=== PATIENT | female | born 1945 ===

== ENCOUNTER 2023-10-14 14:30 | Outpatient (REF) | payer MEDICAID, SELFPAY ==
--- NOTE | ~2023-10-14 | XR_ITS ---
EXAMINATION: XR KNEE, RIGHT CLINICAL INFORMATION: Chronic pain of both knees, history of worsening atraumatic bilateral knee pain COMPARISON: None available. TECHNIQUE: Four views of the right knee. FINDINGS: Marked degenerative changes of the knee. There is utgu-cj-hwly contact of the medial femoral tibial joint with varus angulation of the knee. There is subchondral osteosclerosis, marginal bone spurs and flattening of the articular surfaces of both the femur and tibia at the medial femoral tibial joint. Large marginal bone spurs of femur and tibia at the lateral femoral tibial joint. Marked joint narrowing of the patellofemoral joint with large bone spurs of the patella and the femur. No chondrocalcinosis. No joint effusion. XR/XR knee RT 3V IMPRESSION: Marked degenerative joint disease of the knee.
--- NOTE | ~2023-10-14 | XR_ITS ---
EXAMINATION: XR KNEE, LEFT CLINICAL INFORMATION: Chronic pain of both knees, history of worsening atraumatic bilateral knee pain COMPARISON: None available. TECHNIQUE: Four views of the left knee. FINDINGS: There is no fracture. No dislocation. No joint effusion. Marked degenerative change. Dokr-rm-qfkf contact with large marginal bone spurs of the medial femoral tibial joint. Small periarticular bone spur of the tibia at the lateral femoral tibial joint. Marked joint narrowing with large marginal bone spurs of the patella and femur at the patellofemoral joint. No chondrocalcinosis XR/XR knee LT 3V IMPRESSION: 1. No acute abnormality. 2. Marked degenerative joint disease of the knee.
== END 2023-10-14 14:31 | disposition home or self-care (01) ==
LOC: HO.HHCX 14:30
PROVIDERS: Visit Provider Emergency Medicine
DX: M25.561 Pain in right knee (principal); M25.562 Pain in left knee; G89.29 Other chronic pain
CPT/HCPCS: 73562

== ENCOUNTER 2023-11-17 13:06 | Outpatient (AMB) | payer MEDICAID, SELFPAY ==
--- NOTE | 2023-11-17 13:08 | MHC.OFFVIS ---
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 She describes her right knee pain as sharp and severe in nature. At this point her left knee pain tolerable to her. She has taken Tylenol and anti-inflammatory medicines which gave her minimal relief. She has also done physical therapy exercises which aggravated her pain. She wishes to hold off on surgery for as long as possible. Allergies No Known Allergies Allergy (Verified 11/17/23 13:14) Medication List - Last Reconciled 11/18/23 by Asim Allen MD acetaminophen 1,000 mg PO Q6H PRN diclofenac sodium 1% grams topical BID Physical Exam Const Other: Well-nourished well-developed very friendly female awake alert and oriented x3 in no acute distress Extrem Other: Bilateral lower extremity examination shows good capillary refill, no skin lesions noted, normal sensation light touch Bilateral knee examination shows minimal effusions, palpable crepitus with range of motion, pain with range of motion, no instability Results Reviewed Results Reviewed: X-rays of the patient's bilateral knee show severe joint space narrowing, subchondral sclerosis, no acute bony abnormalities Assessment & Plan Assessment & Plan (1) Arthritis of left knee: Code(s): M17.12 - Unilateral primary osteoarthritis, left knee (2) Arthritis of right knee: Code(s): M17.11 - Unilateral primary osteoarthritis, right knee Plan Ms. Bourgeois presents with bilateral knee pains, right greater than left, due to degenerative joint disease. I had a lengthy discussion with the patient and her daughter regarding the treatment options. The patient wishes to hold off on surgery for as long as possible. At this point the patient's left knee pain is tolerable to her. The risks and benefits of a right knee viscosupplementation injection were discussed at length with the patient. The patient wishes to proceed. I will see her back once the injection is available. If she fails continued non operative treatments we will further discuss the risks and benefits of total knee replacement surgery. Feel free to call me at any time should questions regarding her orthopedic management arise. Thank you very much for asking me to see this very friendly patient. I spent 22 minutes in reviewing the patient's records and imaging studies, seeing the patient and documenting in the medical record. Coding Level of Care Code New Pt Level 2 (13647) Diagnoses Arthritis of left knee M17.12 Arthritis of right knee M17.11
== END 2023-11-17 13:36 | disposition home or self-care (01) ==
PROVIDERS: Visit Provider Orthopaedic Surgery
DX: M17.0 Bilateral primary osteoarthritis of knee (principal)
CPT/HCPCS: 99202

== ENCOUNTER → 2023-11-17 13:06 | Outpatient (BNVA) | payer MEDICAID, SELFPAY | PROVIDERS: Visit Provider Orthopaedic Surgery | DX: M17.0 Bilateral primary osteoarthritis of knee (principal) | CPT/HCPCS: 99202 ==

== ENCOUNTER 2023-12-01 08:46 | Outpatient (AMB) | payer MEDICAID, SELFPAY ==
--- NOTE | 2023-12-01 09:04 | MHC.OFFVIS ---
Intake Vital Signs 12/01/23 09:05 Weight 174 lb Intake Visit Reasons: OV-Right knee injection Intake Note: Hafsa is a 77 year old female who presents for a Right knee injection. Patient reports that she is having bilateral knee pain but her Right knee is worse. She describes her right knee pain as sharp in nature. She has not had a cortisone injection in the past. She wishes to hold off on surgery for as long as possible. She has tried Tylenol and diclofenac which gave her mild relief. She denies any locking or giving way. Allergies No Known Allergies Allergy (Verified 12/01/23 09:10) Medication List - Last Reconciled 12/01/23 by Asim Allen MD acetaminophen 1,000 mg PO Q6H PRN diclofenac sodium 1% grams topical BID Physical Exam Const Other: Well-nourished well-developed very friendly female awake alert and oriented x3 in no acute distress Extrem Other: Bilateral lower extremity examination shows good capillary refill, no skin lesions noted, normal sensation light touch Right knee examination shows a minimal effusion, mild crepitus with range of motion, pain with range of motion, range of motion from -3 degrees to 115 degrees, no instability Office Procedures Joint Injection/Drain Joint Injection/Drain Primary Site: right knee Prep: site was prepped using aseptic technique Injected: 40 mg of, DepoMedrol and 1% plain lidocaine Procedure: The patient tolerated the procedure well Coding 41873 - Large joint Procedure code (CPT) selection complete Results Reviewed Results Reviewed: X-rays of the patient's right knee show joint space narrowing, subchondral sclerosis, no acute bony abnormalities Assessment & Plan Assessment & Plan (1) Arthritis of right knee: Code(s): M17.11 - Unilateral primary osteoarthritis, right knee Plan Ms. Bourgeois presents with right knee pain due to degenerative joint disease. I had a lengthy discussion with the patient regarding the treatment options. She wishes to hold off on surgery for as long as possible. I agree with this plan. The risks and benefits of a right knee cortisone injection were discussed at length with the patient. The patient wished to proceed. She tolerated the injection well. She will continue with her home exercise program. She will follow up with me on an as-needed basis should her symptoms not plateau at an unacceptable level over the next few months. If the patient does not get lasting relief from cortisone injection therapy I will see whether not her insurance company will cover a viscosupplementation injection. I spent 22 minutes in reviewing the patient's records and imaging studies, seeing the patient and documenting in the medical record. Orders: Orders AMB Joint Injection/Aspiration Today M17.11 - Unilateral primary osteoarthritis, right knee Coding Level of Care Code Est Pt Level 2 (69535) Diagnoses Arthritis of right knee M17.11 CPT Codes Coding - 35134 Large joint: 73623 - Large joint ([id number])
== END 2023-12-01 09:32 | disposition home or self-care (01) ==
PROVIDERS: Visit Provider Orthopaedic Surgery
DX: M17.11 Unilateral primary osteoarthritis, right knee (principal)
CPT/HCPCS: 20610

== ENCOUNTER → 2023-12-01 08:46 | Outpatient (BNVA) | payer MEDICAID, SELFPAY | PROVIDERS: Visit Provider Orthopaedic Surgery | DX: M17.11 Unilateral primary osteoarthritis, right knee (principal) | CPT/HCPCS: 20610; J1020 ==

== ENCOUNTER 2024-01-20 12:57 | Outpatient (REF) | payer MEDICAID, SELFPAY ==
--- NOTE | ~2024-01-20 | US_ITS ---
EXAMINATION: US VENOUS ULTRASOUND WITH DOPPLER LOWER EXTREMITY, RIGHT CLINICAL INFORMATION: Right leg edema COMPARISON: None available. TECHNIQUE: Ultrasound of the deep veins is performed from the hip to the calf with compression sonography and color and pulse Doppler assessment. Spectral analysis with color-flow imaging is performed. FINDINGS: There is normal venous compression and respiratory variation and augmented flow. The visualized common femoral vein, superficial femoral vein, profunda femoral vein, popliteal vein, and the trifurcation region shows no evidence of deep venous thrombosis. There is no significant popliteal fossa cyst. If the patient's symptoms persist, followup ultrasound in 5 days 7 days might be of value to exclude proximal propagation from a non-visualized calf vein. US/US venous duplex LE RT IMPRESSION: No DVT demonstrated in the right lower extremity.
== END 2024-01-20 12:58 | disposition home or self-care (01) ==
LOC: HO.US 12:57
PROVIDERS: Visit Provider Internal Medicine
DX: M79.89 Other specified soft tissue disorders (principal)
CPT/HCPCS: 93971

== ENCOUNTER 2024-02-16 09:15 | Outpatient (AMB) | payer MEDICAID, SELFPAY ==
--- NOTE | 2024-02-16 09:22 | A.OFFVIS_ITS ---
Vital Signs 02/16/24 09:23 Weight 174 lb Intake Visit Reasons: OV- Left knee pain poss. inj Intake Note: Hafsa is a 78 year old female who presents for a follow of Left knee pain. The patient describes her pain as sharp in nature. She has had cortisone injections in the past which gave her fairly good. She has done physical therapy exercises which aggravated her pain. She has also tried Tylenol and anti-inflammatory med icines which gave her minimal relief. She wishes to hold off on surgery for as long as She states that she would like to have her Left knee injected today. Allergies No Known Allergies Allergy (Verified 02/16/24 09:37) Medication List - Last Reconciled 02/16/24 by Asim Allen MD acetaminophen 1,000 mg PO Q6H PRN diclofenac sodium 1% grams topical BID Physical Exam Const Other: Well-nourished well-developed very friendly female awake alert and oriented x3 in no acute distress Extrem Other: Bilateral lower extremity examination shows good capillary refill, no skin lesions noted, normal sensation light touch Left knee examination shows a minimal effusion, palpable crepitus with range of motion, pain with range of motion, no instability Office Procedures Joint Injection/Drain Joint Injection/Drain Primary Site: left knee Prep: site was prepped using aseptic technique Injected: 40 mg of and 1% plain lidocaine Procedure: The patient tolerated the procedure well Coding 55985 - Large joint Procedure code (CPT) selection complete Results Reviewed Results Reviewed: X-rays of the patient's left knee show joint space narrowing, subchondral sclerosis, no acute bony abnormalities Assessment & Plan Assessment & Plan (1) Arthritis of left knee: Code(s): M17.12 - Unilateral primary osteoarthritis, left knee Category: Medical Plan Ms. Bourgeois presents with left knee pain due to degenerative joint disease. I had a lengthy discussion with the patient regarding the treatment options. She wishes to hold off on surgery for as long as possible. I agree with this plan. The risks and benefits of a left knee cortisone injection were discussed at length with the patient. The patient wished to proceed with the injection. She tolerated the injection well. She will continue with her home exercise program. She will follow up with me on an as-needed basis should her symptoms not plateau at an unacceptable level over the next few months. Feel free to call me at any time should questions regarding her orthopedic management arise. I spent 22 minutes in reviewing the patient's records and imaging studies, seeing the patient and documenting in the medical record. Orders: Orders AMB Joint Injection/Aspiration Today M17.12 - Unilateral primary osteoarthritis, left knee Coding Level of Care Code Est Pt Level 2 (11909) Diagnoses Arthritis of left knee M17.12 CPT Codes Coding - 18219 Large joint: 03869 - Large joint ([id number])
== END 2024-02-16 09:50 | disposition home or self-care (01) ==
PROVIDERS: PCP Internal Medicine; Visit Provider Orthopaedic Surgery
DX: M17.12 Unilateral primary osteoarthritis, left knee (principal)
CPT/HCPCS: 20610; 99213

== ENCOUNTER → 2024-02-16 09:15 | Outpatient (BNVA) | payer MEDICAID, SELFPAY | PROVIDERS: PCP Internal Medicine; Visit Provider Orthopaedic Surgery | DX: M17.12 Unilateral primary osteoarthritis, left knee (principal) | CPT/HCPCS: 20610; 99212; J1010 ==

== ENCOUNTER 2024-02-24 14:00 | Outpatient (RCR) | payer MEDICAID, SELFPAY | END 2024-03-18 08:19 | disposition home or self-care (01) | LOC: HO.PT 14:00 | PROVIDERS: PCP Internal Medicine; Visit Provider Internal Medicine | DX: M25.561 Pain in right knee (principal); M25.562 Pain in left knee; M79.89 Other specified soft tissue disorders | CPT/HCPCS: 97110; 97162 ==

== ENCOUNTER 2024-03-02 08:13 | Outpatient (AMB) | payer MEDICAID, SELFPAY ==
--- NOTE | 2024-03-02 08:15 | MHC.OFFVIS ---
Vital Signs 03/02/24 08:15 Weight 174 lb Intake Visit Reasons: OV-Right knee injection-last injection 12/01/23 Intake Note: Hafsa is a 78 year old female who presents for a follow up of Right knee pain. Patient reports she had an injection in her Right knee on 12/01/2023 and it gave her some relief. She states she would like to repeat the Right knee injection today. The patient wishes to try viscosupplementation injections in both of her knees at some point. The patient's insurance company mandates that she have at least 2 cortisone injections given into both of her knees prior to approving the viscosupplementation injections. Allergies No Known Allergies Allergy (Verified 03/02/24 08:19) Medication List - Last Reconciled 03/02/24 by Asim Allen MD acetaminophen 1,000 mg PO Q6H PRN diclofenac sodium 1% grams topical BID PFSH Social History Patient Tobacco Use Status: Never used Tobacco Current occupational status: retired Current occupation: Right hand dominant Physical Exam Const Other: Well-nourished well-developed very friendly female awake alert and oriented x3 in no acute distress Extrem Other: Bilateral lower extremity examination shows good capillary refill, no skin lesions noted, normal sensation light touch Right knee examination shows a minimal effusion, palpable crepitus with range of motion, pain with range of motion, no instability Office Procedures Joint Injection/Drain Joint Injection/Drain Primary Site: right knee Prep: site was prepped using aseptic technique Injected: 40 mg of, DepoMedrol and 1% plain lidocaine Procedure: The patient tolerated the procedure well Coding 09315 - Large joint Procedure code (CPT) selection complete Results Reviewed Results Reviewed: X-rays of the patient's bilateral knees show joint space narrowing, subchondral sclerosis, osteophyte formation, no acute bony abnormalities Assessment & Plan Assessment & Plan (1) Arthritis of right knee: Code(s): M17.11 - Unilateral primary osteoarthritis, right knee Category: Medical Plan Ms. Bourgeois presents with right knee pain due to degenerative joint disease. I had a lengthy discussion with the patient regarding the treatment options. She wishes to hold off on surgery for as long as possible. I agree with this plan. The risks and benefits of a cortisone injection were discussed at length with the patient. The patient wished to proceed. She tolerated the injection well. She will continue with her home exercise program. She will contact me prior to her follow-up appointment in 3 months should any questions or concerns arise. I spent 21 minutes in reviewing the patient's records and imaging studies, seeing the patient and documenting in the medical record. Orders: Orders AMB Joint Injection/Aspiration Today M17.11 - Unilateral primary osteoarthritis, right knee Coding Level of Care Code Est Pt Level 3 (11672) Diagnoses Arthritis of right knee M17.11 CPT Codes Coding - 05967 Large joint: 12159 - Large joint ([id number])
== END 2024-03-02 08:44 | disposition home or self-care (01) ==
PROVIDERS: Visit Provider Orthopaedic Surgery
DX: M17.11 Unilateral primary osteoarthritis, right knee (principal)
CPT/HCPCS: 20610; 99213

== ENCOUNTER → 2024-03-02 08:13 | Outpatient (BNVA) | payer MEDICAID, SELFPAY | PROVIDERS: Visit Provider Orthopaedic Surgery | DX: M17.11 Unilateral primary osteoarthritis, right knee (principal) | CPT/HCPCS: 20610; 99212; J1010 ==

== ENCOUNTER 2024-08-03 | Outpatient (REF) | payer MEDICAID, SELFPAY | END 2024-08-03 00:01 | disposition home or self-care (01) | LOC: HO.HHCLNP | PROVIDERS: Visit Provider Internal Medicine | DX: R39.9 Unspecified symptoms and signs involving the genitourinary system (principal) | CPT/HCPCS: 36415; 80053; 80061; 82306; 82607; 82746; 83036; 84443; 85025; 86592; 86803; 87086; 87389 ==

== ENCOUNTER 2024-08-03 15:43 | Outpatient (REF) | payer MEDICAID, SELFPAY ==
[2024-08-03 18:06] LABS: MANUAL DIFF FLAG NO
[2024-08-03 18:25] LABS: Basophils Absolute Auto 0.1 X10*3/uL (0.0-0.2); Basophils Percent Auto 1.3 % (0-2); Eosinophils Absolute Auto 0.1 X10*3/uL (0.0-0.4); Eosinophils Percent Auto 1.1 % (0-4); Hematocrit 37.8 % (37.0-47.0); Hemoglobin 11.9 g/dl (12.0-16.0); Imm Gran Abs Auto 0.02 X10*3/uL (0.00-0.03); Imm Gran Pct Auto 0.3 % (0.0-0.4); Lymphocytes Absolute Auto 2.3 X10*3/uL (1.2-4.9); Lymphocytes Percent Auto 36.8 % (20-40); Mean Corpuscular HGB Conc 31.5 g/dl (31.0-35.0); Mean Corpuscular Hemoglobin 24.2 pg (27.0-33.0); Mean Platelet Volume 10.7 fL (9.4-12.3); Monocytes Absolute Auto 0.3 X10*3/uL (0.1-1.2); Monocytes Percent Auto 5.3 % (2-11); Neutrophils Absolute Auto 3.4 x10*3/uL (2.0-8.3); Neutrophils Percent Auto 55.2 % (45-73); Platelet Count 400 X10*3/uL (160-400); Red Blood Count 4.91 X10*6/uL (4.20-5.50); Red Cell Distribution Width 16.2 % (11.0-16.0); White Blood Count 6.2 X10*3/uL (4.8-10.8)
[2024-08-03 18:42] LABS: Alanine Aminotransferase 12 U/L (0-31); Alkaline Phosphatase 84 U/L (39-117); Anion Gap 14 (12-20); Aspartate Amino Transferase 18 U/L (5-31); Bilirubin Total 0.2 mg/dL (0.0-1.0); Blood Urea Nitrogen 15 mg/dL (9-16); Calcium 9.4 mg/dL (8.4-10.2); Carbon Dioxide 24 mmol/L (22-29); Chloride 110 mmol/L (96-108); Cholesterol 250 mg/dL (<200); Estimated Glomerular Filt Rate > 60; Glucose Random 104 mg/dL (60-115); HDL Cholesterol 85 mg/dL (>40); LDL Cholesterol Calculated 110 mg/dL (<100); Potassium 4.6 mmol/L (3.3-5.1); Sodium 143 mmol/L (135-145); Total Protein 7.7 g/dL (6.5-8.0); Triglycerides 276 mg/dL (<150)
[2024-08-03 18:58] LABS: TSH reflex Free T4 0.49 uIU/mL (0.32-4.0); Vitamin D 25-OH Total 31.6 ng/mL (>30)
[2024-08-03 19:04] LABS: Folate 10.3 ng/mL (> or = 4.0); Vitamin B12 240 pg/mL (200-900)
[2024-08-04 04:33] LABS: HIV AB/AG Nonreactive (Nonreactive); HIV Num 1 0.07 S/CO (0.00-0.99); ~HepC Num1 0.08 S/CO (0.00-0.79); ~Hepatitis C Antibody Nonreactive (Nonreactive)
[2024-08-04 05:25] LABS: Estimated Average Glucose 128 mg/dL; Hemoglobin A1C 130.0592 umol/L; Hemoglobin A1c % 6.1 % (<6.0); Total Hemoglobin (HGBA1C) 2983.0982 umol/L
[2024-08-08 07:37] LABS: RPR Rapid Plasma Reagin NON-REACTIVE (NON-REACTIVE)
== END 2024-08-03 15:44 | disposition home or self-care (01) ==
LOC: HO.HHCL 15:43
PROVIDERS: Visit Provider Internal Medicine
DX: Z00.00 Encounter for general adult medical examination without abnormal findings (principal); R20.0 Anesthesia of skin; R20.2 Paresthesia of skin; R39.9 Unspecified symptoms and signs involving the genitourinary system
CPT/HCPCS: 36415; 80053; 80061; 82306; 82607; 82746; 83036; 84443; 85025; 86592; 86803; 87389

== ENCOUNTER 2024-08-31 08:48 | Outpatient (AMB) | payer MEDICAID, SELFPAY ==
--- NOTE | 2024-08-31 08:51 | MHC.OFFVIS ---
Intake Visit Reasons: Bilateral knee pains Intake Note: Hafsa is a 78 year old female who presents with complaints of progressively worsening bilateral knee pains. I first met the patient on 11/17/2023. At that appointment the patient complained of progressively worsening bilateral knee pains. Over the last 10 months the patient's symptoms have gotten worse in spite of continued non operative treatments. She has also failed the last 3 months of conservative treatment which has consisted of a home exercise program, topical diclofenac gel, Tylenol and anti-inflammatory medicines. The patient's insurance company mandated that she get 2 cortisone injections into both of her knees prior to qualifying for viscosupplementation injections. Over the last 10 months the patient has had 2 cortisone injections given into both of her knees. None of those for injections gave her any relief. The patient has difficulty walking even short distances because of her bilateral knee pains. At this point her bilateral knee pains are interfering with her activities of daily living and her ability to sleep well through the night. The patient wishes to hold off on total knee replacement surgery if at all possible. Allergies No Known Allergies Allergy (Verified 08/31/24 08:56) Medication List - Last Reconciled 08/31/24 by Asim Allen MD acetaminophen 1,000 mg PO Q6H PRN diclofenac sodium 1% grams topical BID PFSH Social History Patient Tobacco Use Status: Never used Tobacco Current occupational status: retired Current occupation: Right hand dominant Physical Exam Const Other: Well-nourished well-developed very friendly female awake alert and oriented x3 in no acute distress Extrem Other: Bilateral lower extremity examination shows good capillary refill, no skin lesions noted, normal sensation light touch Bilateral knee examination shows minimal effusions, palpable crepitus with range of motion, pain with range of motion, range of motion from -3 degrees to 115 degrees, no instability Results Reviewed Results Reviewed: X-rays of the patient's bilateral knees taken previously show joint space narrowing, subchondral sclerosis, no acute bony abnormalities Assessment & Plan Assessment & Plan (1) Osteoarthritis of left knee: Code(s): M17.12 - Unilateral primary osteoarthritis, left knee Category: Medical (2) Osteoarthritis of right knee: Code(s): M17.11 - Unilateral primary osteoarthritis, right knee Category: Medical Plan Mrs. Bourgeois presents with progressively worsening bilateral knee pains due to bilateral knee osteoarthritis. I had a lengthy discussion with the patient regarding the treatment options. The patient has failed the last 10 months of conservative treatment which has included 2 sets of bilateral knee cortisone injections, topical creams, Tylenol, anti-inflammatory medicines and a home physical therapy program. I will now see whether or not the patient's insurance company will cover a viscosupplementation injection, such as Durolane, for both of her knees. I will see her back once the injections are available. Feel free to call me at any time should questions regarding her orthopedic management arise. I spent 21 minutes in reviewing the patient's records and imaging studies, seeing the patient and documenting in the medical record. Coding Level of Care Code Est Pt Level 3 (62980) Complex EM visit Add On G2211 Diagnoses Osteoarthritis of left knee M17.12 Osteoarthritis of right knee M17.11
== END 2024-08-31 09:04 | disposition home or self-care (01) ==
LOC: HO.HOS 08:49
PROVIDERS: PCP Internal Medicine; Visit Provider Orthopaedic Surgery
DX: M17.0 Bilateral primary osteoarthritis of knee (principal)
CPT/HCPCS: 99213

== ENCOUNTER → 2024-08-31 08:48 | Outpatient (BNVA) | payer MEDICAID, SELFPAY | PROVIDERS: PCP Internal Medicine; Visit Provider Orthopaedic Surgery | DX: M17.0 Bilateral primary osteoarthritis of knee (principal) | CPT/HCPCS: 99212 ==

== ENCOUNTER 2024-09-27 10:24 | Outpatient (AMB) | payer MEDICAID, SELFPAY ==
--- NOTE | 2024-09-27 10:31 | A.OFFVIS_ITS ---
Vital Signs 09/27/24 10:35 Weight 174 lb Intake Visit Reasons: B/L Knee Euflexxa Gel Injections #1 Intake Note: Hafsa is a 78 year old female who presents with complaints of progressively worsening bilateral knee pains. She describes her pains as sharp in nature. She has had cortisone injections in the past which gave her minimal relief. She has not had a viscosupplementation injection. Wishes to hold off on surgery for as long as possible. She has tried Tylenol and anti-inflammatory medicines which gave her minimal relief. She also reports progressively worsening chronic low back pain. She has not been seen by a back specialist. Distance Learning Administrator Required: No Allergies No Known Allergies Allergy (Verified 09/27/24 10:36) Medication List - Last Reconciled 09/28/24 by Asim Allen MD acetaminophen 1,000 mg PO Q6H PRN amlodipine 5 mg PO DAILY diclofenac sodium 1% grams topical BID omeprazole 20 mg PO pravastatin 40 mg PO DAILY PFSH Social History Patient Tobacco Use Status: Never used Tobacco Current occupational status: retired Current occupation: Right hand dominant Physical Exam Const Other: Well-nourished well-developed very friendly female awake alert and oriented x3 in no acute distress Extrem Other: Bilateral knee examination shows minimal effusions, palpable crepitus with range of motion, pain with range of motion, range of motion from -3 degrees to 115 degrees, no instability Office Procedures AMB Joint Injection/Aspiration Joint Injection/Aspiration Primary Site: left knee Prep: site was prepped using aseptic technique Injected: 20 mg of (Euflexxa viscosupplementation) and 1% plain lidocaine Procedure: The patient tolerated the procedure well Coding 13082 - Large joint Procedure code (CPT) selection complete AMB Joint Injection/Aspiration Joint Injection/Aspiration Primary Site: right knee Prep: site was prepped using aseptic technique Injected: 20 mg of (Euflexxa viscosupplementation) and 1% plain lidocaine Procedure: The patient tolerated the procedure well Coding 54910 - Large joint Procedure code (CPT) selection complete Results Reviewed Results Reviewed: X-rays of the patient's bilateral knees taken previously show joint space narrowing, subchondral sclerosis, no acute bony abnormalities Assessment & Plan Assessment & Plan (1) Osteoarthritis of left knee: Code(s): M17.12 - Unilateral primary osteoarthritis, left knee Category: Medical (2) Osteoarthritis of right knee: Code(s): M17.11 - Unilateral primary osteoarthritis, right knee Category: Medical Plan Hafsa presents with bilateral knee pains due to osteoarthritis. The risks and benefits of bilateral knee Euflexxa viscosupplementation injections were discussed at length with the patient. The patient wished proceed. She tolerated the 1st set of injections well. She also has chronic low back pain most likely due to degenerative disc disease. I will arrange for her to have a follow-up appointment with Dr. Muller. She will contact me prior to her follow- up appointment next week should any questions or concerns arise. Feel free to call me at any time should questions regarding her orthopedic management arise. I spent 21 minutes in reviewing the patient's records and imaging studies, seeing the patient and documenting in the medical record. Orders: Orders AMB Joint Injection/Aspiration 09/27/24 M17.12 - Unilateral primary osteoarthritis, left knee AMB Joint Injection/Aspiration 09/27/24 M17.11 - Unilateral primary osteoarthritis, right knee Referrals Pain Management Referral M54.50 - Low back pain, unspecified Coding Level of Care Code Est Pt Level 3 (37824) Complex EM visit Add On G2211 Diagnoses Osteoarthritis of left knee M17.12 Osteoarthritis of right knee M17.11 CPT Codes Coding - 12824 Large joint: 45255 - Large joint ([id number]) Coding - 09137 Large joint: 30960 - Large joint ([id number])
== END 2024-09-27 11:09 | disposition home or self-care (01) ==
PROVIDERS: PCP Internal Medicine; Visit Provider Orthopaedic Surgery
DX: M17.0 Bilateral primary osteoarthritis of knee (principal)
CPT/HCPCS: 20610; 99213

== ENCOUNTER → 2024-09-27 10:24 | Outpatient (BNVA) | payer MEDICAID, SELFPAY | PROVIDERS: PCP Internal Medicine; Visit Provider Orthopaedic Surgery | DX: M17.0 Bilateral primary osteoarthritis of knee (principal) | CPT/HCPCS: 20610; 99212; J2003; J7323 ==

== ENCOUNTER 2024-10-04 10:12 | Outpatient (AMB) | payer MEDICAID, SELFPAY ==
--- NOTE | 2024-10-04 10:14 | A.OFFVIS_ITS ---
Vital Signs 10/04/24 10:15 Weight 173 lb Intake Visit Reasons: B/L Knee Euflexxa Gel Injections #2 Intake Note: Hafsa is a 78 year old female who presents today for her second dose of Bilateral Knee Euflexxa. She states that she got mild relief from the 1st set of injections. She continues with her home exercise program. She does take Tylenol as needed for her discomfort. Allergies No Known Allergies Allergy (Verified 10/04/24 10:14) Medication List - Last Reconciled 10/05/24 by Asim Allen MD acetaminophen 1,000 mg PO Q6H PRN amlodipine 5 mg PO DAILY diclofenac sodium 1% grams topical BID omeprazole 20 mg PO pravastatin 40 mg PO DAILY PFSH Social History Patient Tobacco Use Status: Never used Tobacco Current occupational status: retired Current occupation: Right hand dominant Physical Exam Extrem Other: Bilateral knee examination shows minimal effusions, palpable crepitus with range of motion, pain with range of motion, no instability Office Procedures AMB Joint Injection/Aspiration Joint Injection/Aspiration Primary Site: left knee Prep: site was prepped using aseptic technique Injected: 20 mg of (Euflexxa viscosupplementation) and 1% plain lidocaine Procedure: The patient tolerated the procedure well Coding 12552 - Large joint Procedure code (CPT) selection complete AMB Joint Injection/Aspiration Joint Injection/Aspiration Primary Site: right knee Prep: site was prepped using aseptic technique Injected: 20 mg of (Euflexxa viscosupplementation) and 1% plain lidocaine Coding 65627 - Large joint Procedure code (CPT) selection complete Results Reviewed Results Reviewed: X-rays of the patient's bilateral knees taken previously show joint space narro wing, subchondral sclerosis, no acute bony abnormalities Assessment & Plan Assessment & Plan (1) Osteoarthritis of left knee: Code(s): M17.12 - Unilateral primary osteoarthritis, left knee Category: Medical (2) Osteoarthritis of right knee: Code(s): M17.11 - Unilateral primary osteoarthritis, right knee Category: Medical Plan Hafsa presents with bilateral knee pains due to osteoarthritis. I had a lengthy discussion with the patient regarding the treatment options. The risks and benefits of a 2nd set of Euflexxa viscosupplementation injections were discussed at length with the patient. The patient wished to proceed. She tolerated the injections well. She will continue with her home exercise program. She will follow up next week as scheduled. Feel free to call me at any time should questions regarding her orthopedic management arise. Orders: Orders AMB Joint Injection/Aspiration 10/04/24 M17.12 - Unilateral primary osteoarthritis, left knee AMB Joint Injection/Aspiration 10/04/24 M17.11 - Unilateral primary osteoarthritis, right knee Coding Level of Care Code Procedure Only Diagnoses Osteoarthritis of left knee M17.12 Osteoarthritis of right knee M17.11 CPT Codes Coding - 52082 Large joint: 82307 - Large joint ([id number]) Coding - 83266 Large joint: 96133 - Large joint ([id number])
== END 2024-10-04 10:32 | disposition home or self-care (01) ==
PROVIDERS: PCP Internal Medicine; Visit Provider Orthopaedic Surgery
DX: M17.0 Bilateral primary osteoarthritis of knee (principal)
CPT/HCPCS: 20610

== ENCOUNTER → 2024-10-04 10:12 | Outpatient (BNVA) | payer MEDICAID, SELFPAY | PROVIDERS: PCP Internal Medicine; Visit Provider Orthopaedic Surgery | DX: M17.0 Bilateral primary osteoarthritis of knee (principal) | CPT/HCPCS: 20610; J2003; J7323 ==

== ENCOUNTER 2024-10-11 10:04 | Outpatient (AMB) | payer MEDICAID, SELFPAY ==
--- NOTE | 2024-10-11 10:07 | MHC.OFFVIS ---
Vital Signs 10/11/24 10:07 Weight 174 lb Intake Visit Reasons: B/L Knee Euflexxa Gel Injections #3 Intake Note: Hafsa is a 78 year old female who presents today for her third dose of Bilateral Knee Euflexxa. She states that she has gotten mild relief from the 1st 2 injections. She continues with her home exercise program. Allergies No Known Allergies Allergy (Verified 10/11/24 10:08) Medication List - Last Reconciled 10/12/24 by Asim Allen MD acetaminophen 1,000 mg PO Q6H PRN amlodipine 5 mg PO DAILY diclofenac sodium 1% grams topical BID omeprazole 20 mg PO pravastatin 40 mg PO DAILY PFSH Social History Patient Tobacco Use Status: Never used Tobacco Current occupational status: retired Current occupation: Right hand dominant Physical Exam Extrem Other: Bilateral knee examination shows minimal effusions, palpable crepitus with range of motion, no instability Results Reviewed Results Reviewed: X-rays of the patient's bilateral knees taken previously show joint space narrowing, subchondral sclerosis, no acute bony abnormalities Assessment & Plan Assessment & Plan (1) Osteoarthritis of left knee: Code(s): M17.12 - Unilateral primary osteoarthritis, left knee Category: Medical (2) Osteoarthritis of right knee: Code(s): M17.11 - Unilateral primary osteoarthritis, right knee Category: Medical Plan Ms. Bourgeois presents with bilateral knee pains due to osteoarthritis. I had a lengthy discussion with the patient regarding the treatment options. The risks and benefits of a 3rd set of Euflexxa injections were discussed at length with the patient. The patient wished to proceed. She tolerated the injections well. She will continue with her home exercise program. She will contact me prior to her follow-up appointment in 3 months should any questions or concerns arise. Feel free to call me at any time should questions regarding her orthopedic management arise. Orders: Orders AMB Joint Injection/Aspiration 10/11/24 M17.12 - Unilateral primary osteoarthritis, left knee AMB Joint Injection/Aspiration 10/11/24 M17.11 - Unilateral primary osteoarthritis, right knee Coding Level of Care Code Procedure Only Diagnoses Osteoarthritis of left knee M17.12 Osteoarthritis of right knee M17.11
== END 2024-10-11 10:37 | disposition home or self-care (01) ==
PROVIDERS: PCP Internal Medicine; Visit Provider Orthopaedic Surgery
DX: M17.0 Bilateral primary osteoarthritis of knee (principal)
CPT/HCPCS: 20610

== ENCOUNTER → 2024-10-11 10:04 | Outpatient (BNVA) | payer MEDICAID, SELFPAY | PROVIDERS: PCP Internal Medicine; Visit Provider Orthopaedic Surgery | DX: M17.0 Bilateral primary osteoarthritis of knee (principal); Z79.899 Other long term (current) drug therapy | CPT/HCPCS: 20610; J2003; J7323 ==

== ENCOUNTER 2024-11-28 11:07 | Outpatient (AMB) | payer MEDICAID, SELFPAY ==
--- NOTE | 2024-11-28 11:08 | A.OFFVIS_ITS ---
Vital Signs 11/28/24 11:10 Height 5 ft Weight 173 lb BMI 33.8 BP 156/77 H Blood Pressure Location Lt brachial Position Sitting Respiration 16 Pulse 78 Pulse Source Pulse Oximeter Pulse Oximetry (%) 97 Oxygen Delivery Method Room Air Intake Visit Reasons: Low Back Pain Early Head Start Director Required: Yes Early Head Start Director Services: Early Head Start Director Offered & Declined Early Head Start Director Name: Prefers family member Allergies No Known Allergies Allergy (Verified 11/28/24 11:12) Medication List - Last Reconciled 11/28/24 by Sri Ruvalcaba LPN acetaminophen 1,000 mg PO Q6H PRN amlodipine 5 mg PO DAILY diclofenac sodium 1% grams topical BID omeprazole 20 mg PO pravastatin 40 mg PO DAILY HPI HPI Low Back Pain: Details: History of Present Illness The patient is a 78-year-old female presenting with chronic knee pain, primarily affecting the right knee. The knee pain has been persistent and debilitating, affecting her daily activities and quality of life. The pain is severe and has been resistant to conservative management. She has previously received both cortisone injections and gel injections for the osteoarthritis, but these interventions have not provided significant relief. There is no history of knee replacement surgery, and she is considering this as a potential next step. She reports that the pain has progressively worsened over time. Pain Description - Onset and Timing: Persistent, chronic pain - Quality and Character: Described as severe and debilitating - Primary Location: Right knee - Exacerbating Factors: Not improving with injections - Interference: Affects daily activities significantly Physical Exam Results - Imaging: X-ray discussed showing advanced osteoarthritis in the knee Pain Management - Affect: Pain significantly impacts daily functioning and quality of life - Analgesia: Previous cortisone and gel injections have been ineffective - Adverse Effects: None reported in the conversation - Activities of Daily Living: Pain limits mobility and function - Aberrant Drug Related Behaviors: None reported in the conversation [facility] Social History Patient Tobacco Use Status: Never used Tobacco Current occupational status: retired Current occupation: Right hand dominant Physical Exam Vital Signs: Last Vital Signs Pulse 78 11/28/24 11:10 Resp 16 11/28/24 11:10 BP 156/77 H 11/28/24 11:10 Pulse Ox 97 11/28/24 11:10 Oxygen Delivery Method Room Air 11/28/24 11:10 BMI result Body Mass Index 33.8 Assessment & Plan Assessment & Plan (1) Osteoarthritis of right knee: Code(s): M17.11 - Unilateral primary osteoarthritis, right knee Category: Medical (2) Osteoarthritis of left knee: Code(s): M17.12 - Unilateral primary osteoarthritis, left knee Category: Medical Plan Plan - The patient has been informed of the ineffectiveness of further injections given the advanced state of osteoarthritis. - Recommendation made for surgical consultation with orthopedics regarding knee replacement. - Discussed the potential benefit of knee replacement surgery in alleviating pain and improving function. - No immediate further injections or non-invasive options recommended due to advanced disease. Patient was informed and verbally consented to the use of an ambient scribe for clinic note documentation during this visit. Discussion Notes I discussed with the patient the severity and progression of her knee osteoarthritis and the limited effectiveness of further injections. We reviewed the option of knee replacement surgery as the most promising intervention for her current condition. I explained that this procedure is typically beneficial in cases of advanced osteoarthritis where conservative treatments have failed. She was encouraged to contact the orthopedic office to express her readiness for surgery, allowing them to initiate the scheduling process. I mentioned that potential post-operative pain could still occur, albeit rarely, and she could follow up afterward if needed. Patient Instructions - Consider discussing surgical intervention with an orthopedic surgeon. - Contact the orthopedics office to schedule a consultation for knee replacement surgery. - Monitor for any changes or worsening in condition and report as needed. Coding Level of Care Code New Pt Level 3 (33468) Diagnoses Osteoarthritis of right knee M17.11 Osteoarthritis of left knee M17.12
[2024-11-28 11:10] VITALS: BP 156/77; PULSE 78; RESP 16; O2SAT 97; BMI 33.8
--- OUTSIDE RECORDS SUMMARY | 2024-11-28 12:20 | XMS_ITS | Encounter Summary ---
Author Organization [employer] Address [address] [place] [address] Care Team Providers Care Professor Of Environmental Studies Name Role Phone Corine Tobin MD Primary Care Provide r Reason for Visit * Reason Comments Med Refill Encounter Details Date Type Department Care Team ([facility] st Contact Info) Description 11/21/2024 Refill [facility] [address] [place] [address] Corine Tobin MD [address] [place] [address] Primary hypertension; Gastroesophageal reflux disease, unspecified whether esophagitis present; Chronic gastric ulcer, unspecified whether gastric ulcer hemorrhage or perforation present Social History Tobacco Use Types Packs/Day Years Used Date Smoking Tobacco: Never Passive Smoke Exposure: Never Smokeless Tobacco: Never Alcohol Use Standard Drinks/Week Comments Never 0 (1 standard drink = 0.6 oz pur e alcohol) Depression Answer Date Recorded Patient Health Questionnaire-9 Score 8 08/03/2024 Patient Health Questionnaire-9 Score 8 08/03/2024 Last PHQ-9: Questionnaire Data Not on file 1 Housing Stability Answer Date Recorded What is your housing situation today? I have malou shaw 08/03/[address] you li ve. Do you have problems with any of the following? None of the above 08/03/2024 Food Insecurity Answer Date Recorded Within the past 12 months, y ou worried that your food would run out before you got money to buy more: Never True 08/03/2024 Within the past 12 months,th e food you bought just didn't last and you didn't have enough money to get more: Never True 06/2024 Transportation Answer Date Recorded In the past 12 months, has l ack of transportation kept you from medical appts, meetings, work or from getting things needed for daily living? No 08/03/2024 Utilities Answer Date Recorded In the past 12 months, has t he electric, gas, oil or water company threatened to shut off services in your home? No 08/03/2024 Depression Answer Date Recorded Patient Health Questionnaire-2 Score 4 08/03/2024 Internet Access Answer Date Recorded Internet Access Q1 Yes 08/03/2024 Internet Access Q2 Not on file 08/03/2024 Comments Unknown Sex and Gender Information Value Date Recorded Sex Assigned at Female 10/14/2023 11:36 AM EST Legal Sex Female 11:07 AM EST Gender Identity Female 10/14/2023 11:36 AM EST Sexual Orientation Straight 10/14/2023 11 :36 AM EST documented as of this encounter Plan of Treatment Upcoming Encounters Date Type Department Care Team (Late st Contact Info) Description 12/02/2024 2:30 PM EST Office Visit [facility] [address] [place] [address] Corine Tobin MD [address] [place] [address] documented as of this encounter Visit Diagnoses Diagnosis Primary hypertension Unspecified essential hypertension Gastroesophageal reflux disease, unspecified whether esophagitis present Chronic gastric ulcer, unspecified whether gastric ulcer hemorrhage or perforation present documented in this encounter Additional Health Concerns Assessment Noted Time PHQ-9 Depression Total Score: 8 08/03/20 2:40 PM EDT documented as of this encounter Care Teams Professor Of Environmental Studies Relationship Specialty Start Date End Date Corine Tobin MD [address] [place] [address] PCP - General Internal Medicine 08/03/24 documented as of this encounter
--- OUTSIDE RECORDS SUMMARY | 2024-11-28 12:20 | XMS_ITS | Encounter Summary ---
Author Organization [employer] Address [address] [place] [address] Care Team Providers Care Collection Manager Name Role Phone Corine Tobin MD Primary Care Provide r Reason for Visit * Reason Comments Transition Of Care (Tcm) SDOH screening negative and tobacco screening negative Encounter Details Date Type Department Care Team ([facility] st Contact Info) Description 11/21/2024 Patient Outreach [facility] MED[facility]INE [address] [place] [address] Corine Tobin MD [address] [place] [address] Transition Of Care (Tcm) (SDOH screening negative and tobacco screening negative) Social History Tobacco Use Types Packs/Day Years [...] AM EST documented as of this encounter Progress Notes * Alexandrea Will - 11/21/2024 12:40 PM EST CC Alexandrea placed successful outbound call to patient for pre-visit planning. Patient name and confirmed. Patient confirms appt date and time, and has transportation. Biggest concern for appointment at this time is none Patient advised to bring to appointment a photo id and insurance card. Appropriate screenings completed in anticipation of appointment. documented in this encounter Plan of Treatment Upcoming Encounters Date Type Department Care Team (Late st Contact Info) Description 12/02/2024 2:30 PM EST Office Visit [facility] MED[facility]INE [address] [place] [address] Corine Tobin MD [address] [place] [address] documented as of this encounter Visit Diagnoses Not on filedocumented in this encounter Additional Health Concerns Assessment Noted Time PHQ-9 Depression Total Score: 8 08/03/20 24 2:40 PM EDT documented as of this encounter Care Teams Collection Manager Relationship Specialty Start Date End Date Corine Tobin MD [address] [place] [address] PCP - General Internal Medicine 08/03/24 documented as of this encounter
--- OUTSIDE RECORDS SUMMARY | 2024-11-28 12:20 | XMS_ITS | Clinical Summary ---
Author Organization [employer] Address [address] [facility] [address]t [place] [address] Care Team Providers Care Propagation Manager Name Role Phone Corine Tobin MD Primary Care Provide r Allergies No known active allergies Medications acetaminophen (Tylenol) 500 MG tablet Take 2 tablets (1,000 mg) by mouth every 6 (six) hours if needed for moderate pain or fever for up to 25 doses. 40 tablet 10/14/20 23 Active diclofenac sodium 3 % gel Apply topically 2 times daily. 100 g 1 10/14/20 23 Active hydrocortisone (Preparation H) 1 % cream Apply to anal area bid prn 30 g 2 01/26/20 24 Active pravastatin (Pravachol) 40 MG tabletIndication s:Primary hypertension,Dys lipidemia Take 1 tablet (40 mg) by mouth Once per day. 30 tablet 11 08/30/20 24 025 Active amLODIPine (Norvasc) 5 MG tabletIndication s:Primary hypertension TAKE 1 TABLET BY MOUTH EVERY DAY 90 tablet 11/22/19 25 Active omeprazole (PriLOSEC) [address] capsuleIndicatio ns:Gastroesophag eal reflux disease, unspecified whether esophagitis present,Chronic gastric ulcer, unspecified whether gastric ulcer hemorrhage or perforation present TAKE 1 CAPSULE BY MOUTH TWICE DAILY IN THE MORNING AND IN THE EVENING BEFORE MEALS. DO NOT BREAK, CRUSH, DISSOLVE OR CHEW. 180 capsule 11/22/19 25 Active omeprazole (PriLOSEC) [address] capsuleIndicatio ns:Gastroesophag eal reflux disease, unspecified whether esophagitis present,Chronic gastric ulcer, unspecified whether gastric ulcer hemorrhage or perforation present Take 1 capsule (20 mg) by mouth before breakfast and before evening meal. Do not crush or chew. 60 capsule 3 08/30/20 24 025 Discontinued amLODIPine (Norvasc) 5 MG tabletIndication s:Primary hypertension Take 1 tablet (5 mg) by mouth Once per day. 30 tablet 2 08/30/20 24 025 Discontinued Active Problems Problem Noted Date Diagnosed Date GERD (gastroesophageal reflux disease) Chronic gastric ulcer 08/30/2024 Assessment & Plan (08/30/2024 4:46 PM EST): I advise patient to avoid NSAIDs, spicy and acid food, I advise to eat at the same time every day, I advise to elevate the head of the bed and take medications as prescribe Primary hypertension 08/30/2024 Assessment & Plan (08/30/2024 4:46 PM EST): Maintenance: BMP: up to date Lipid Panel: up to date ASCVD Risk: High, I started on pravastatin 40mg daily I advise: - Aerobic exercise to reduce BP. Initial goal of 30 min walk 3-5x/week. Increase as tolerated. - low-sodium diet (goal: <2g/day) and heart healthy diet such as DASH to reduce BP and prevent ASCVD. - Home BP monitoring 1-2 x day with goal of <140/90. - Seek immediate medical attention for chest pain, palpitations, SOB, syncope, or sudden changes in mental status. - Do not change or discontinue current prescriptions without first consulting health care provider Dyslipidemia 08/30/2024 Prediabetes 08/30/2024 Assessment & Plan (08/30/2024 4:46 PM EST): Today extensive discussion was done about life style modifications I advise healthy diet (low calorie) and cardiovascular exercise Primary osteoarthritis of both knees 08/03/2024 Assessment & Plan (08/04/2024 2:22 PM EDT): Continue to follow with orthopedics Alternate acetaminophen and ibuprofen PRN Health care maintenance 08/03/2024 UTI symptoms 08/03/2024 Assessment & Plan (08/04/2024 2:21 PM EDT): UA and culture Will treat with macrobid empirically Patient will be contacted with results Numbness and tingling of leg 08/03/2024 S/P COLLEEN (total abdominal hysterectomy) Chronic pain of both knees 10/14/2023 Encounters Date Type Department Care Team Description 11/21/2024 Patient Outreach [address] [address] Corine Tobin MD Transition Of Care (Tcm) (SDOH screening negative and tobacco screening negative) 11/21/[address] [address] Corine Tobin MD Primary hypertension; Gastroesophageal reflux disease, unspecified whether esophagitis present; Chronic gastric ulcer, unspecified whether gastric ulcer hemorrhage or perforation present 09/13/2024 2:30 PM EST Clinical Support [address] [address] Gena Bethea RN Primary hypertension 09/13/2024 Travel 08/30/2024 3:15 PM EST Office Visit [address] [address] Corine Tobin MD Gastroesophageal reflux disease, unspecified whether esophagitis present (Primary Dx); Chronic gastric ulcer, unspecified whether gastric ulcer hemorrhage or perforation present; Primary hypertension; Dyslipidemia; Prediabetes 08/30/2024 Travel from Last 3 Months Immunizations Name Administration Dates Next Due Pneumococcal Conjugate PCV 20 08/03/2024 Social History Tobacco Use Types Packs/Day Years Used Date Smoking Tobacco: Never Passive Smoke Exposure: Never Smokeless Tobacco: Never Tobacco Cessation:Counseling Given: Not Answered Alcohol Use Standard Drinks/Week Comments Never 0 [...] Orientation Straight 10/14/2023 11 :36 AM EST Last Filed Vital Signs Vital Sign Reading Time Taken Comments Blood Pressure 134/75 09/13/2024 3:09 PM EST Pulse 85 09/13/2024 3:09 PM EST Temperature 36.1 ??C (97 ??F) 08/30/2024 3:22 PM EST Respiratory Rate 18 09/13/2024 3:09 PM EST Oxygen Saturation 98% 09/13/2024 3:09 PM EST Inhaled Oxygen Concentration - - Weight 78.9 kg (174 lb) 08/30/2024 3:22 PM EST Height 152.4 cm (5') 08/30/2024 3:22 PM EST Body Mass Index 33.98 08/30/2024 3:22 PM EST Plan of Treatment Upcoming Encounters Date Type Department Care Team (Late st Contact Info) Description 12/02/2024 2:30 PM EST Office Visit [facility] [address] [place] [address] Corine Tobin MD [address] [place], [place] [phone] Health Maintenance Due Date Last Done Comments DTaP/Tdap/Td Vaccines (1 - Tdap) 12/29/1966 Zoster Vaccines (1 of 2) 12/29/1997 RSV Patients and Patients Aged 60 years or older (1 - 1-dose 75+ series) 12/29/2022 COVID-19 Vaccine ( - 2023-2 5 season) 2024 Influenza Vaccine (#1) 2024 Alcohol/Substance Use Screening 08/03/2025 08/03/2024 Depression Screening 08/03/2025 08/03/2024, 08/03/2024 Diabetes: Hemoglobin A1C 08/03/2025 08/03/2024 Tobacco Screening 08/30/2025 08/30/2024 SDOH Screening 11/21/2025 11/21/2024 Lipid Panel 08/03/2029 08/03/2024 Hepatitis C Screening Completed 08/03/2024 Pneumococcal Vaccine: 50+ Years Completed 08/03/2024 HIB Vaccines Aged Out No longer eligi ble based on patient's age to complete this topic HPV Vaccines Aged Out No longer eligi ble based on patient's age to complete this topic Hepatitis A Vaccines Aged Out No long er eligible based on patient's age to complete this topic Hepatitis B Vaccines Aged Out No long er eligible based on patient's age to complete this topic IPV Vaccines Aged Out No longer eligi ble based on patient's age to complete this topic Meningococcal Vaccine Aged Out No shayla carmelina eligible based on patient's age to complete this topic RSV under 20 months Aged Out No longe r eligible based on patient's age to complete this topic Rotavirus Vaccines Aged Out No longer eligible based on patient's age to complete this topic Procedures Procedure Name Priority Date/Time Associated Diagnosis Comments HEPATITIS C AB W/REFL TO HCV RNA, QN, PCR Routine 08/03/2024 3:45 PM EDT Numbness and tingling of leg HEMOGLOBIN A1C Routine 08/03/2024 3:45 PM EDT Health care maintenance Numbness and tingling of leg LIPID PANEL, STANDARD Routine 08/03/2024 3:45 PM EDT Health care maintenance from Last 3 Months or Most Recently Relevant to Health Maintenance Results * Hepatitis C Antibody with Reflex to HCV, RNA, Quantitative, Real-Time PCR (08/03/2024 3:45 PM EDT) Hepatitis C Antibody Nonreactive Nonreactive [facility] Comment:Antibodies to HCV no t detected; does not exclude early acuteHCV infection. Blood Venous blood specimen / Unknown 08/03/2024 3:45 PM EDT 08/03/2024 6:03 PM EDT us Corine Jin MD LAB BLOOD ORDERABLES Final Result Performing Organization Address City/[facility]/ZIP Co de Phone Number [facility] [address] [place] [phone] * (ABNORMAL) Hemoglobin A1c (08/03/2024 3:45 PM EDT) Hemoglobin A1c 6.1(H) <6.0 % [facility] Comment:Hemoglobin A1C Refer ence Range Adults: 4.8 - 6.0 % Non diabetic: < 6.0 % Goal: < 7.0 %Additional Action Suggested: > 8.0 %Note: Hemoglobin A1c results are invalid for patients with abnormal amounts of HbF. Blood transfusions may impact the HbA1c concentration in the patient sample. Estimated Average Glucose 128 mg/dL [facility] Comment:eAG = Estimated ave rage glucose which is %A1C expressed asaverage glucose, using the formula of the N2I-WtwlsnyIouqavu Glucose study (ADAG), Diabetes Care, Vol.31,#8,May. 2007 Blood Venous blood specimen / Unknown 08/03/2024 3:45 PM EDT 08/03/2024 6:03 PM EDT us Corine Jin MD LAB BLOOD ORDERABLES Final Result [facility] [address] [place] [address] [phone] * (ABNORMAL) Lipid Panel, Standard (08/03/2024 3:45 PM EDT) Triglycerides 276(H) <150 mg/dL [facility] Comment:Desirable Triglyceri de: less than 150 mg/dLBorderline High Triglyceride 150-199 mg/dLHigh Triglyceride: 200-499 mg/dLVery High Triglyceride: greater than or equal to 5OO mg/dL Cholesterol 250(H) <200 mg/dL [facility] Comment:Desirable Cholestero l: less than 200 mg/dLBorderline High Cholesterol: 200-239 mg/dLHigh Cholesterol: greater than 239 mg/dL LDL Cholesterol Calculated 110(H) <100 mg/dL [facility] Comment:Desirable LDL: less than 100 mg/dLNear Optimal/Above Optimal LDL: 110- 129 mg/dLBorderline High LDL: 130-159 mg/dLHigh LDL: 160-189 mg/dLVery High LDL: greater than or equal to 190 mg/dL HDL Cholesterol 85 >40 mg/dL [facility] Comment:Desirable HDL: great er than 40 mg/dL Note: This HDL assay may give artificially low results in patients with liver disease. Blood Venous blood specimen / Unknown 08/03/2024 3:45 PM EDT 08/03/2024 6:03 PM EDT Corine Jin MD LAB BLOOD ORDERABLES Final Result Performing Organization Address City/[facility]/ZIP Co de Phone Number [facility] [address] [place] [phone] from Last 3 Months or Most Recently Relevant to Health Maintenance Insurance [facility] ST[facility] Care Teams Propagation Manager Relationship Specialty Start Date End Date Corine Tobin MD [address] [place] [phone] PCP - General Internal Medicine 08/03/24
--- OUTSIDE RECORDS SUMMARY | 2024-11-28 12:20 | XMS_ITS | Encounter Summary ---
Author Organization [employer] Address [address] [facility] 7t [place] [address] Care Team Providers Care Evaporator Repairer Name Role Phone Corine Tobin MD Primary Care Provide r Encounter Details Date Type Department Care Team (Late st Contact Info) Description 01/18/2024 Telephone [facility] [address] [place] [phone] Rogelio Dobbs MD [address] [place] [address] [phone] Social History Tobacco Use Types Packs/Day Years Used Date Smoking Tobacco: Never Smokeless Tobacco: Never Comments Unknown Sex and Gender Information Value [...] Description 12/02/2024 2:30 PM EST Office Visit [facility] [address] [place] [address] [phone] Corine Tobin MD [address] [place] [address] [phone] documented as of this encounter Visit Diagnoses Not on filedocumented in this encounter Care Teams Evaporator Repairer Relationship Specialty Start Date End Date Corine Tobin MD [address] [place] [address] PCP - General Internal Medicine 08/03/24 documented as of this encounter
== END 2024-11-28 11:44 | disposition home or self-care (01) ==
PROVIDERS: PCP Internal Medicine; Visit Provider Internal Medicine
DX: M17.0 Bilateral primary osteoarthritis of knee (principal)
CPT/HCPCS: 99203

== ENCOUNTER → 2024-11-28 11:07 | Outpatient (BNVA) | payer MEDICAID, SELFPAY | PROVIDERS: PCP Internal Medicine; Visit Provider Internal Medicine | DX: M17.0 Bilateral primary osteoarthritis of knee (principal) | CPT/HCPCS: 99202 ==

== ENCOUNTER 2025-04-25 11:07 | Outpatient (REF) | payer MEDICAID, SELFPAY ==
--- NOTE | ~2025-04-25 | CT_ITS ---
CLINICAL HISTORY: abdominal mass lump RUQ CT abdomen with contrast Comparison: None provided Findings: No consolidation or effusion. There is a large hiatal hernia. The gallbladder and solid organs are within normal limits. No renal stones. No bowel obstruction, pneumoperitoneum, or pneumatosis. There are no subcutaneous masses or collections in the right upper quadrant. The bones are intact. IMPRESSION: No acute findings. This document has been electronically signed by: Jersey Crowley MD on 04/27/2025 10:09:50
[2025-04-25] MEDS: iohexoL 350 MG/ML 100 ML INFUS..BTL 85 ML IV (11:58)
--- OUTSIDE RECORDS SUMMARY | 2025-04-25 12:23 | XMS_ITS | Clinical Summary ---
Author Organization [employer] Address [address] [facility] 7t [place] [address] Care Team Providers Care Extension Work Instructor Name Role Phone Corine Tobin MD Primary Care Provide r Allergies No known active allergies Medications acetaminophen (Tylenol) 500 MG tablet Take 2 tablets (1,000 mg) by mouth every 6 (six) hours if needed for moderate pain or fever for up to 25 doses. 40 tablet 3 Active diclofenac sodium 3 % gel Apply topically 2 times daily. 100 g 1 3 Active hydrocortisone (Preparation H) 1 % cream Apply to anal area bid prn 30 g 2 4 Active omeprazole (PriLOSEC) [address] capsuleIndication s:Gastroesophagea l reflux disease, unspecified whether esophagitis present,Chronic gastric ulcer, unspecified whether gastric ulcer hemorrhage or perforation present TAKE 1 CAPSULE BY MOUTH TWICE DAILY IN THE MORNING AND IN THE EVENING BEFORE MEALS. DO NOT BREAK, CRUSH, DISSOLVE OR CHEW. 180 capsule 5 Active pravastatin (Pravachol) 40 MG tabletIndications :Primary hypertension,Dysl ipidemia Take 1 tablet (40 mg) by mouth Once per day. 90 tablet 1 5 12/02/19 26 Active amLODIPine (Norvasc) 5 MG tabletIndications :Primary hypertension Take 1 tablet (5 mg) by mouth Once per day. 90 tablet 5 Active Active Problems Problem Noted Date Diagnosed Date Chronic idiopathic constipation 12/02/2024 Assessment & Plan (12/05/2024 5:15 PM EST): I advised to drink more water add more fiber to her diet I will prescribe the patient Colace and MiraLAX Abdominal wall lump 12/02/2024 Assessment & Plan (12/05/2024 5:15 PM EST): I will order a CT of the abdomen for further evaluation patient will be contacted with results GERD (gastroesophageal reflux disease) Chronic gastric ulcer 08/30/2024 Assessment & Plan (08/30/2024 4:46 PM EST): I advise patient to avoid NSAIDs, spicy and acid food, I advise to eat at the same time every day, I advise to elevate the head of the bed and take medications as prescribe Primary hypertension 08/30/2024 Assessment & Plan (12/05/2024 5:14 PM EST): I ADVISED: - Aerobic exercise to reduce BP. - low-sodium diet (goal: <2g/day) and heart healthy diet such as DASH to reduce BP and prevent ASCVD. - Home BP monitoring 1-2 x day with goal of <140/90. - Seek immediate medical attention for chest pain, palpitations, SOB, syncope, or sudden changes in mental status. - Do not change or discontinue current prescriptions without first consulting health care provider Assessment & Plan (08/30/2024 4:46 PM EST): [...] Dyslipidemia 08/30/2024 Prediabetes 08/30/2024 Assessment & Plan (12/05/2024 5:15 PM EST): Extensive counseling about healthy diet and exercise done today Assessment & Plan (08/30/2024 4:46 PM EST): Today extensive discussion was done about life style modifications I advise healthy diet (low calorie) and cardiovascular exercise Primary osteoarthritis of both knees 08/03/2024 Assessment & Plan (12/05/2024 5:15 PM EST): Continue to follow-up with orthopedics Assessment & Plan (08/04/2024 2:22 PM EDT): Continue to follow with orthopedics Alternate acetaminophen and ibuprofen PRN Health care maintenance 08/03/2024 UTI symptoms 08/03/2024 Assessment & Plan (08/04/2024 2:21 PM EDT): UA and culture Will treat with macrobid empirically Patient will be contacted with results Numbness and tingling of leg 08/03/2024 S/P COLLEEN (total abdominal hysterectomy) 3 Chronic pain of both knees 10/14/2023 Encounters Date Type Department Care Team Description 03/01/2025 Telephone [facility] [address] [place] [phone] Corine Tobin MD MAY RECALL from Last 3 Months Immunizations Immunization Administration Dates Next Due Pneumococcal Conjugate PCV [...] Sign Reading Time Taken Comments Blood Pressure 142/88 12/02/2024 2:55 PM EST Pulse 74 12/02/2024 2:55 PM EST Temperature 36.3 C (97.4 F) 12/02/2024 2:55 PM EST Respiratory Rate 16 12/02/2024 2:55 PM EST Oxygen Saturation 98% 09/13/2024 3:09 PM EST Inhaled Oxygen Concentration - - Weight 79.2 kg (174 lb 9.6 oz) 12/02/2024 2:55 P M EST Height 152.4 cm (5') 12/02/2024 2:55 PM EST Body Mass Index 34.1 12/02/2024 2:55 PM EST Plan of Treatment Upcoming Encounters Date Type Department Care Team (Late st Contact Info) Description 05/31/2025 2:00 PM EDT Office Visit [facility] [address] [place] [address] Kary Esquivel, KERA [address] [place] [address] 06/19/2025 9:45 AM EDT Office Visit [facility] [address] [facility] [place], [place] [phone] Corine Tobin MD [address] [place] [address] Health Maintenance Due Date Last Done Comments DTaP/Tdap/Td Vaccines (1 - Tdap) 12/29/1966 Zoster Vaccines (1 of 2) 12/29/1997 RSV Patients and Patients Aged 60 years or older (1 - 1-dose 75+ series) 12/29/2022 COVID-19 Vaccine (2023-2 5 season) 2024 Influenza Vaccine (Season Ended) 2025 Alcohol/Substance Use Screening 08/03/2025 08/03/2024 Depression Screening [...] patient's age to complete this topic Meningococcal B Vaccine Aged Out No l onger eligible based on patient's age to complete [...] PM EDT) Hepatitis C Antibody Nonreactive Nonreactive [facility] Comment:Antibodies to HCV no t detected; does not exclude early acuteHCV infection. Blood Venous blood specimen / Unknown 08/03/2024 3:45 PM EDT 08/03/2024 6:03 PM EDT us Corine Jin MD LAB BLOOD ORDERABLES Final Result [facility] [address] [place] [phone] * (ABNORMAL) Hemoglobin A1c (08/03/2024 3:45 PM EDT) Hemoglobin A1c 6.1(H) <6.0 % [facility] Comment:Hemoglobin A1C Refer ence Range Adults: 4.8 - 6.0 % Non diabetic: < 6.0 % Goal: < 7.0 %Additional Action Suggested: > 8.0 %Note: Hemoglobin A1c results are invalid for patients with abnormal amounts of HbF. Blood transfusions may impact the HbA1c concentration in the patient sample. Estimated Average Glucose 128 mg/dL [facility] Comment:eAG = Estimated ave rage glucose which is %A1C expressed asaverage glucose, using the formula of the U4A-AczvylcBhcxcym Glucose study (ADAG), Diabetes Care, Vol.31,#8,2007 Blood Venous blood specimen / Unknown 08/03/2024 3:45 PM EDT 08/03/2024 6:03 PM EDT us Corine Jin MD LAB BLOOD ORDERABLES Final Result Performing Organization Address City/[facility]/ZIP Co de Phone Number [facility] [address] [place] [phone] * (ABNORMAL) Lipid Panel, Standard (08/03/2024 3:45 PM EDT) Triglycerides 276(H) <150 mg/dL [facility] Comment:Desirable Triglyceri de: less than 150 mg/dLBorderline High Triglyceride 150-199 mg/dLHigh Triglyceride: 200-499 mg/dLVery High Triglyceride: greater than or equal to 5OO mg/dL Cholesterol 250(H) <200 mg/dL [facility] Comment:Desirable Cholestero l: less than 200 mg/dLBorderline High Cholesterol: 200-239 mg/dLHigh Cholesterol: greater than 239 mg/dL LDL Cholesterol Calculated 110(H) <100 mg/dL [facility] Comment:Desirable LDL: less than 100 mg/dLNear Optimal/Above Optimal LDL: 110- 129 mg/dLBorderline High LDL: 130-159 mg/dLHigh LDL: 160-189 mg/dLVery High LDL: greater than or equal to 190 mg/dL HDL Cholesterol 85 >40 mg/dL [facility] Comment:Desirable HDL: great er than 40 mg/dL Note: This HDL assay may give artificially low results in patients with liver disease. Blood Venous blood specimen / Unknown 08/03/2024 3:45 PM EDT 08/03/2024 6:03 PM EDT us Corine Jin MD LAB BLOOD ORDERABLES Final Result [facility] [address] [place] [address] [phone] from Last 3 Months or Most Recently Relevant to Health Maintenance Insurance [facility] STANDARD [facility] STANDARD Care Teams Extension Work Instructor Relationship Specialty Start Date End Date Corine Tobin MD [address] [place] [address] PCP - General Internal Medicine 08/03/24
[2025-04-25 16:05] LABS: Creatinine POC 0.7 mg/dL (0.5-1.4); GFR POC > 60
== END 2025-04-25 11:08 | disposition home or self-care (01) ==
LOC: HO.CT 11:07
PROVIDERS: PCP Internal Medicine; Visit Provider Internal Medicine
DX: R22.2 Localized swelling, mass and lump, trunk (principal)
CPT/HCPCS: 74160; 82565; Q9967

== ENCOUNTER → 2025-04-25 11:12 | Outpatient (BNV) | payer MEDICAID, SELFPAY | PROVIDERS: PCP Internal Medicine; Visit Provider Specialist | DX: K44.9 Diaphragmatic hernia without obstruction or gangrene (principal) | CPT/HCPCS: 74160 ==

== ENCOUNTER 2025-05-15 09:07 | Outpatient (AMB) | payer MEDICAID, SELFPAY ==
--- NOTE | 2025-05-15 09:10 | MHC.OFFVIS ---
Vital Signs 05/15/25 09:12 Height 5 ft Weight 173 lb BMI 33.8 Intake Visit Reasons: Bilateral knee pains Intake Note: Hafsa is a 79 year old female who presents with complaints of progressively worsening bilateral knee pains, right greater than left. She describes her right knee pain as sharp and severe in nature, 08/04. Her right knee pain has gotten worse over the last few years in spite of continued non operative treatments. The patient has difficulty walking even short distances because of her right knee pain. At this point her right knee pain is interfering with her activities of daily living and her ability to sleep well through the night. She has had cortisone injections and viscosupplementation injections. The most recent set of injections gave her minimal relief. At this point the patient's right knee pain is interfering with her activities of daily living and her ability to sleep well through the night. She has tried Tylenol and anti-inflammatory medicines which gave her minimal relief. She has also done physical therapy which aggravated her pain. Fiberglass Roller Required: Yes Fiberglass Roller Services: Fiberglass Roller Offered & Declined Fiberglass Roller Name: [employer] - Daughter Allergies No Known Allergies Allergy (Verified 05/15/25 09:12) Medication List - Last Reconciled 05/15/25 by Asim Allen MD acetaminophen 1,000 mg PO Q6H PRN amlodipine 5 mg PO DAILY diclofenac sodium 1% grams topical BID omeprazole 20 mg PO pravastatin 40 mg PO DAILY PFSH Social History Patient Tobacco Use Status: Never used Tobacco Current occupational status: retired Current occupation: Right hand dominant Physical Exam Vital Signs: BMI result Body Mass Index 33.8 Const Other: Well-nourished well-developed very friendly female awake alert and oriented x3 in no acute distress Extrem Other: Bilateral knee examination shows minimal effusions, palpable crepitus with range of motion, pain with range of motion, range of motion from -3 degrees to 115 degrees, no instability Results Reviewed Results Reviewed: X-rays of the patient's bilateral knees taken previously show end-stage degenerative joint disease with grade 4 [id number] arthritis, subchondral sclerosis, osteophyte formation, no acute bony abnormalities Assessment & Plan Assessment & Plan (1) Arthritis of left knee: Code(s): M17.12 - Unilateral primary osteoarthritis, left knee Category: Medical (2) Arthritis of right knee: Code(s): M17.11 - Unilateral primary osteoarthritis, right knee Category: Medical Plan Ms. Bourgeois presents with bilateral knee pains, right greater than left, due to end-stage degenerative joint disease. I had a lengthy discussion with the patient regarding the treatment options. At this point she appears to be failing continued non operative treatments. The risks and benefits of right total knee replacement surgery were discussed at length with the patient. The patient is considering undergoing surgery later this year. She will contact my office to pick a surgery date if she chooses to do so. Otherwise she will follow up on an as-needed basis. Feel free to call me at any time should questions regarding her orthopedic management arise. I spent 20 minutes in reviewing the patient's records and imaging studies, seeing the patient and documenting in the medical record. Coding Level of Care Code Est Pt Level 3 (93840) Complex EM visit Add On G2211 Diagnoses Arthritis of left knee M17.12 Arthritis of right knee M17.11
[2025-05-15 09:12] VITALS: BMI 33.8
--- OUTSIDE RECORDS SUMMARY | 2025-05-15 09:24 | XMS_ITS | Clinical Summary ---
Author Organization [employer] Address [address] [facility] 7[address] [place] [address] Care Team Providers Care Wearing Apparel Shaker Name Role Phone Corine Tobin MD Primary [...] daily. 100 g 1 10/14/20 23 Active Additional Information Patient not taking.Reason: Pt states not taking, Reported on 05/11/2025 pravastatin (Pravachol) 40 MG tabletIndicatio ns:Primary hypertension,Dy slipidemia Take 1 tablet (40 mg) by mouth Once per day. 90 tablet 1 12/02/19 25 2025 Active Additional Information Patient not taking.Reason: Pt states not taking, Reported on 05/11/2025 docusate sodium (Colace) 100 MG capsuleIndicati ons:Chronic idiopathic constipation TAKE 1 CAPSULE BY MOUTH TWICE DAILY 180 capsule 2 05/12/20 25 Active amLODIPine (Norvasc) 5 MG tabletIndicatio ns:Primary hypertension TAKE 1 TABLET BY MOUTH EVERY DAY 90 tablet 2 05/12/20 25 Active omeprazole (PriLOSEC) [address] capsuleIndicati ons:Gastroesoph ageal reflux disease, unspecified whether esophagitis present,Chronic gastric ulcer, unspecified whether gastric ulcer hemorrhage or perforation present TAKE 1 CAPSULE BY MOUTH TWICE DAILY IN THE MORNING AND IN THE EVENING BEFORE MEALS. DO NOT BREAK, CRUSH, DISSOLVE OR CHEW. 180 capsule 05/12/20 25 Active hydrocortisone 1 % cream APPLY TO ANAL AREA TWICE DAILY NEEDED 30 g 2 05/12/20 25 Active hydrocortisone (Preparation H) 1 % cream Apply to anal area bid prn 30 g 2 01/26/20 24 2024 Discontinued(R eorder (will not trigger notification to Pharmacy)) omeprazole (PriLOSEC) [address] capsuleIndicati ons:Gastroesoph ageal reflux disease, unspecified whether esophagitis present,Chronic gastric ulcer, unspecified whether gastric ulcer hemorrhage or perforation present TAKE 1 CAPSULE BY MOUTH TWICE DAILY IN THE MORNING AND IN THE EVENING BEFORE MEALS. DO NOT BREAK, CRUSH, DISSOLVE OR CHEW. 180 capsule 11/22/19 25 2024 Discontinued(R eorder (will not trigger notification to Pharmacy)) docusate sodium (Colace) 100 MG capsuleIndicati ons:Chronic idiopathic constipation Take 1 capsule (100 mg) by mouth 2 times daily. 60 capsule 2 12/02/19 25 2024 Discontinued amLODIPine (Norvasc) 5 MG tabletIndicatio ns:Primary hypertension Take 1 tablet (5 mg) by mouth Once per day. 90 tablet 12/02/192024 Discontinued Active Problems Problem Noted Date Diagnosed [...] Encounters Date Type Department Care Team Description 05/11/2025 1:00 PM EDT Office Visit [facility] [address] [place] [address] Tosin, Tia Tipped teeth (Primary Dx); Excessive attrition of teeth; Dental caries 05/11/2025 Refill [facility] [address] [place] [address] Corine Tobin MD Chronic idiopathic constipation; Primary hypertension; Gastroesophageal reflux disease, unspecified whether esophagitis present; Chronic gastric ulcer, unspecified whether gastric ulcer hemorrhage or perforation present 05/11/2025 Refill [facility] [address] [place] [address] Cynthia Roque DO Gastroesophageal reflux disease, unspecified whether esophagitis present; Chronic gastric ulcer, unspecified whether gastric ulcer hemorrhage or perforation present 05/11/2025 Refill [facility] [address] [place] [address] Mikayla Browning FNP 04/27/2025 Results Follow-Up [facility] [address] [place] [address] [phone] Abdomen w/ Contrast 03/01/2025 Telephone [facility] [address] [place] [address] Corine Tobin MD MAY RECALL from Last [...] Sign Reading Time Taken Comments Blood Pressure 140/78 05/11/2025 1:10 PM EDT Pulse 74 12/02/2024 2:55 PM EST Temperature [...] Description 05/31/2025 2:00 PM EDT Office Visit [facility] [address] [place] [address] Sierra Kary, OD [address] [place] [address] 06/19/2025 9:45 AM EDT Office Visit [facility] [address] [place] [address] Corine Tobin MD [address] [place] [address] 06/29/2025 10:30 AM EDT Office Visit [facility] [address] [place] [address] Geovani Villareal DDS [address] [place] [address] Health Maintenance Due Date Last Done Comments Dental Prophylaxis 1945 DTaP/Tdap/Td Vaccines (1 - Tdap) 12/29/1966 Zoster Vaccines (1 of 2) 12/29/1997 RSV Patients and Patients Aged 60 years or older (1 - 1-dose 75+ series) 12/29/2022 COVID-19 Vaccine ( - 2023-2 5 season) 2024 Influenza Vaccine (#1) 2025 Alcohol/Substance Use Screening 08/03/2025 08/03/2024 Depression Screening 08/03/2025 08/03/2024, 08/03/2024 Diabetes: Hemoglobin A1C 08/03/2025 08/03/2024 Dental Oral Exam 11/12/2025 05/11/2025 SDOH Screening 11/21/2025 11/21/2024 Tobacco Screening 05/11/2026 05/11/2025 Dental X-Ray: Bitewings 05/12/2026 05/11/2025 Dental X-Ray: Full Mouth 05/12/2028 05/11/2025 Lipid Panel 08/03/2029 08/03/2024 Hepatitis C Screening [...] Procedure Name Priority Date/Time Associated Diagnosis Comments COMPREHENSIVE ORAL EVALUATION - NEW OR ESTABLISHED PATIENT Routine 05/11/2025 1:00 PM EDT CASE PRESENTATION, DETAILED AND EXTENSIVE TREATMENT PLANNING Routine 05/11/2025 1:00 PM EDT ORAL HYGIENE INSTRUCTIONS Routine 05/11/2025 1:00 PM EDT INTRAORAL - COMPLETE SERIES OF RADIOGRAPHIC IMAGES Routine 05/11/2025 1:00 PM EDT 15 O AMALGAM FILLING Routine 05/11/2025 12:00 AM EDT 31 O COMPOSITE FILLING Routine 12:00 AM EDT 32 EXTRACTION Routine 05/11/2025 12:00 AM EDT 30 EXTRACTION Routine 05/11/2025 12:00 AM EDT 19 EXTRACTION Routine 05/11/2025 12:00 AM EDT 18 EXTRACTION Routine 05/11/2025 12:00 AM EDT 17 EXTRACTION Routine 05/11/2025 12:00 AM EDT 16 EXTRACTION Routine 05/11/2025 12:00 AM EDT 14 EXTRACTION Routine 05/11/2025 12:00 AM EDT 12 EXTRACTION Routine 05/11/2025 12:00 AM EDT 8 EXTRACTION Routine 05/11/2025 12:00 AM EDT 5 EXTRACTION Routine 05/11/2025 12:00 AM EDT 4 EXTRACTION Routine 05/11/2025 12:00 AM EDT 3 EXTRACTION Routine 05/11/2025 12:[address] ABDOMEN W CONTRAST Routine 04/27/2025 10:09 AM EDT Abdominal wall lump POCT CREATININE GFR Routine 04/25/2025 1 1:59 AM EDT Abdominal wall lump HEPATITIS C AB W/REFL TO HCV RNA, QN, PCR Routine 08/03/2024 3:45 PM EDT Numbness and tingling of leg HEMOGLOBIN A1C Routine 08/03/2024 3:45 PM EDT Health care maintenance Numbness and tingling of leg LIPID PANEL, STANDARD Routine 08/03/2024 3:45 PM EDT Health care maintenance from Last 3 Months or Most Recently Relevant to Health Maintenance Results * CT Abdomen w/ Contrast (04/27/2025 10:09 AM EDT) Anatomical Region Laterality Modality Body, Abdomen Computed Tomogra phy 04/27/2025 10:0 9 AM EDT Narrative 04/27/2025 10:11 AM EDT [place] [address] [address] Scan Report Signed Patient: Hafsa Bourgeois MR#: [id number] : 1945 Acct:[id number] Age/Sex: 79 / F ADM Date: 04/25/25 Loc: HO.CT Attending Dr: Corine Jin MD Ordering Physician: Corine Tobin MD Date of Service: 04/25/25 Procedure(s): CT abdomen w IV con Accession Number(s): [id number] cc: Corine Tobin MD Report Number: [id number]: Total DLP = 355.00 mGy-cm CLINICAL HISTORY: abdominal mass lump RUQ CT abdomen with contrast Comparison: None provided Findings: No consolidation or effusion. There is a large hiatal hernia. The gallbladder and solid organs are within normal limits. No renal stones. No bowel obstruction, pneumoperitoneum, or pneumatosis. There are no subcutaneous masses or collections in the right upper quadrant. The bones are intact. IMPRESSION: No acute findings. This document has been electronically signed by: Jersey Crowley MD on 04/27/2025 10:09:50 Dictated By: Jersey Crowley MD Signed By: <Electronically signed by Jersey Crowley MD in OV> 04/27/25 1011 DD/ 1009 TD/TT: 04/27/25 100 Director Of Digital Marketing: Procedure Note Donotuseinterpreter, Image - 04/27/[address] [place] [address] [address] Scan Report Signed Patient: Hafsa Bourgeois AMR#: [id number] : 8Acct:[id number] Age/Sex: 79 / FADM Date: 04/25/25 Loc: HO.CT Attending Dr: Corine Jin MD Ordering Physician: Corine Tobin MD Date of Service: 04/25/25 Procedure(s): CT abdomen w IV con Accession Number(s): [id number] cc: Corine Tobin MD Report Number: [id number]: Total DLP = 355.00 mGy-cm CLINICAL HISTORY: abdominal mass lump RUQ CT abdomen with contrast Comparison: None provided Findings: No consolidation or effusion. There is a large hiatal hernia. The gallbladder and solid organs are within normal limits. No renal stones. No bowel obstruction, pneumoperitoneum, or pneumatosis. There are no subcutaneous masses or collections in the right upper quadrant. The bones are intact. IMPRESSION: No acute findings. This document has been electronically signed by: Jersey Crowley MD on 04/27/2025 10:09:50 Dictated By: Jersey Crowley MD Signed By: <Electronically signed by Jersey Crowley MD in OV> 04/27/25 1011 DD/ 1009 TD/TT: 04/27/251008 Director Of Digital Marketing: us Corine Jin MD IMG CT PROCEDURES Dinh mahogany Result - Final * POCT Creatinine GFR (04/25/2025 11:59 AM EDT) [facility] POCT Creatinine 0.7 0.5 - 1.4 mg/dL [facility] GFR POC >60 [facility] Comment:Chronic Kidney Disea se: Estimated GFR < 60 mL/min/[id number] Kidney Disease: Estimated GFR < 15 mL/min/1.73m2 04/25/2025 11:5 9 AM EDT 04/25/2025 4:03 PM EDT Narrative [facility] - 04/25/2025 4:05 PM EDT [id number] us Corine Jin MD LAB POINT OF CARE TEST DOCKED DEVICE ORDERABLES Final Result Performing Organization Address [facility]/ZIP Co de Phone Number [facility] [address] [place] [phone] * Hepatitis C Antibody with Reflex to HCV, RNA, Quantitative, Real-Time PCR (08/03/2024 3:45 PM EDT) [facility] Hepatitis C Antibody Nonreactive Nonreactive [facility] Comment:Antibodies to HCV no t detected; does not exclude early acuteHCV infection. Blood Venous blood specimen / Unknown 08/03/2024 3:45 PM EDT 08/03/2024 6:03 PM EDT us Corine Jin MD LAB BLOOD ORDERABLES Final Result Performing Organization Address [facility]/ZIP Co de Phone Number [facility] [address] [place] [phone] * (ABNORMAL) Hemoglobin A1c (08/03/2024 3:45 PM EDT) Pathologist [facility] Hemoglobin A1c 6.1(H) <6.0 % [facility] Comment:Hemoglobin A1C Refer ence Range Adults: 4.8 - 6.0 % Non diabetic: < 6.0 % Goal: < 7.0 %Additional Action Suggested: > 8.0 %Note: Hemoglobin A1c results are invalid for patients with abnormal amounts of HbF. Blood transfusions may impact the HbA1c concentration in the patient sample. Estimated Average Glucose 128 mg/dL [facility] Comment:eAG = Estimated ave rage glucose which is %A1C expressed asaverage glucose, using the formula of the [id number]-[id number] Glucose study (ADAG), Diabetes Care, Vol.31,#8,May. 2007 Blood Venous blood specimen / Unknown 08/03/2024 3:45 PM EDT 08/03/2024 6:03 PM EDT Corine Jin MD LAB BLOOD ORDERABLES Final Result [facility] [address] [place] [phone] * (ABNORMAL) Lipid Panel, Standard (08/03/2024 3:45 PM EDT) Triglycerides 276(H) <150 mg/dL [facility] Comment:Desirable Triglyceri de: less than 150 mg/dLBorderline High Triglyceride 150-199 mg/dLHigh Triglyceride: 200-499 mg/dLVery High Triglyceride: greater than or equal to 5OO mg/dL Cholesterol 250(H) <200 mg/dL [facility] Comment:Desirable Cholestero l: less than 200 mg/dLBorderline High Cholesterol: 200-239 mg/dLHigh Cholesterol: greater than 239 mg/dL LDL Cholesterol Calculated 110(H) <100 mg/dL [facility] Comment:Desirable LDL: less than 100 mg/dLNear Optimal/Above Optimal LDL: 110- 129 mg/dLBorderline High LDL: 130-159 mg/dLHigh LDL: 160-189 mg/dLVery High LDL: greater than or equal to 190 mg/dL HDL Cholesterol 85 >40 mg/dL [facility] Comment:Desirable HDL: great er than 40 mg/dL Note: This HDL assay may give artificially low results in patients with liver disease. Blood Venous blood specimen / Unknown 08/03/2024 3:45 PM EDT 08/03/2024 6:03 PM EDT Corine Jin MD LAB BLOOD ORDERABLES Final Result [facility] [address] [place] [phone] from Last 3 Months or Most Recently Relevant to Health Maintenance [facility] [address] [place], [place] [id number] AD[place] Care Teams Wearing Apparel Shaker Relationship Specialty Start Date End Date Corine Tobin MD [address] [place] [phone] PCP - General Internal Medicine 08/03/24
== END 2025-05-15 09:32 | disposition home or self-care (01) ==
LOC: HO.HOS 09:07
PROVIDERS: PCP Internal Medicine; Visit Provider Orthopaedic Surgery
DX: M17.0 Bilateral primary osteoarthritis of knee (principal)
CPT/HCPCS: 99213

== ENCOUNTER → 2025-05-15 09:07 | Outpatient (BNVA) | payer MEDICAID, SELFPAY | PROVIDERS: PCP Internal Medicine; Visit Provider Orthopaedic Surgery | DX: M17.12 Unilateral primary osteoarthritis, left knee (principal); M17.11 Unilateral primary osteoarthritis, right knee | CPT/HCPCS: 99212 ==

== ENCOUNTER → 2025-06-13 13:09 | Outpatient (BNVA) | payer MEDICAID, SELFPAY | PROVIDERS: PCP Internal Medicine | DX: Z01.818 Encounter for other preprocedural examination (principal) ==

== ENCOUNTER 2025-06-28 | Outpatient (REF) | payer MEDICAID, SELFPAY ==
--- OUTSIDE RECORDS SUMMARY | 2025-05-31 06:42 | XMS_ITS | Clinical Summary ---
Author Organization [employer] Address [address] [facility] [address] [place] [address] Care Team Providers Care Internal Investigator Name Role Phone Corine Tobin MD Primary Care Provide r Allergies No known active allergies Medications acetaminophen (Tylenol) 500 MG tablet Take 2 tablets (1,000 mg) by mouth every 6 (six) hours if needed for moderate pain or fever for up to 25 doses. 40 tablet 10/14/20 Active diclofenac sodium 3 % gel Apply topically 2 times daily. 100 g 1 10/14/20 Active Additional Information Patient not taking.Reason: Pt [...] Description 05/11/2025 1:00 PM EDT Office Visit [facility] AD[facility] [address] [place] [address] Tosin, Tia Tipped teeth (Primary Dx); Excessive attrition of teeth; Dental caries 05/11/2025 Refill [facility] [address] [place] [address] Corine Tobin MD Chronic idiopathic constipation; Primary hypertension; Gastroesophageal reflux disease, unspecified whether esophagitis present; Chronic gastric ulcer, unspecified whether gastric ulcer hemorrhage or perforation present 05/11/2025 Refill [facility] [address] [place] [address] Cynthia Roque DO Gastroesophageal reflux disease, unspecified whether esophagitis present; Chronic gastric ulcer, unspecified whether gastric ulcer hemorrhage or perforation present 05/11/2025 Refill [facility] [address] [place] [address] Mikayla Browning FNP 04/27/2025 Results Follow-Up [facility] [address] [place] [address] [phone] [address] Abdomen w/ Contrast 03/01/2025 Telephone [facility] [address] [place] [address] Corine Tobin MD MAY RECALL from Last [...] Description 05/31/2025 2:00 PM EDT Office Visit [facility] [address] [place] [address] Sierra Kary, OD [address] [place] [address] 06/19/2025 9:45 AM EDT Office Visit [facility] [address] [place] [address] Corine Tobin MD [address] [place] [address] 06/29/2025 10:30 AM EDT Office Visit [facility] [address] [place] [address] Geovani Villareal DDS [address] [place] [address] Health Maintenance Due Date Last Done Comments [...] AM EDT Narrative 04/27/2025 10:11 AM EDT [place] [address] [address] Scan Report Signed Patient: Hafsa Bourgeois MR#: [id number] : 1945 Acct:[id number] Age/Sex: 79 / F ADM Date: 04/25/25 Loc: HO.CT Attending Dr: Corine Jin MD Ordering Physician: Corine Tobin MD Date of Service: 04/25/25 Procedure(s): CT abdomen w IV con Accession Number(s): [id number] cc: Corine Tobin MD Report Number: [id number]: Total DLP = 355.00 mGy-cm CLINICAL HISTORY: [...] 04/27/25 1011 DD/ 1009 TD/TT: 04/27/25 100 Direct Chill Casting Operator: Procedure Note Donotuseinterpreter, Image - 04/27/[address] [place] [address] [address] Scan Report Signed Patient: Hafsa Bourgeois AMR#: [id number] : 8Acct:[id number] Age/Sex: 79 / FADM Date: 04/25/25 Loc: HO.CT Attending Dr: Corine Jin MD Ordering Physician: Corine Tobin MD Date of Service: 04/25/25 Procedure(s): CT abdomen w IV con Accession Number(s): [id number] cc: Corine Tobin MD Report Number: [id number]: Total DLP = 355.00 mGy-cm CLINICAL HISTORY: [...] OV> 04/27/25 1011 DD/ 1009 TD/TT: 04/27/251008 Direct Chill Casting Operator: us Corine Jin MD IMG CT PROCEDURES Dinh mahogany Result - Final * POCT Creatinine GFR (04/25/2025 11:59 AM EDT) [facility] POCT Creatinine 0.7 0.5 - 1.4 mg/dL [facility] GFR POC >60 [facility] Comment:Chronic Kidney Disea se: Estimated GFR < 60 mL/min/1.00k1Xufftw Kidney Disease: Estimated GFR < 15 mL/min/1.73m2 04/25/2025 11:5 9 AM EDT 04/25/2025 4:03 PM EDT Narrative [facility] - 04/25/2025 4:05 PM EDT [id number] us Corine Jin MD LAB POINT OF CARE TEST DOCKED DEVICE ORDERABLES Final Result Performing Organization Address [facility]/ZIP Co de Phone Number [facility] [address] [place] [phone] * Hepatitis C Antibody with Reflex to HCV, RNA, Quantitative, Real-Time PCR (08/03/2024 3:45 PM EDT) [facility] Hepatitis C Antibody Nonreactive Nonreactive [facility] Comment:Antibodies to HCV no t detected; does not exclude early acuteHCV infection. Blood Venous blood specimen / Unknown 08/03/2024 3:45 PM EDT 08/03/2024 6:03 PM EDT us Corine Jin MD LAB BLOOD ORDERABLES Final Result Performing Organization Address [facility]/ZIP Co de Phone Number [facility] [address] [place] [phone] * (ABNORMAL) Hemoglobin A1c (08/03/2024 3:45 PM EDT) Pathologist [facility] Hemoglobin A1c 6.1(H) <6.0 % [facility] Comment:Hemoglobin A1C Refer ence Range Adults: 4.8 - 6.0 % Non diabetic: < 6.0 % Goal: < 7.0 %Additional Action Suggested: > 8.0 %Note: Hemoglobin A1c results are invalid for patients with abnormal amounts of HbF. Blood transfusions may impact the HbA1c concentration in the patient sample. Estimated Average Glucose 128 mg/dL [facility] Comment:eAG = Estimated ave rage glucose which is %A1C expressed asaverage glucose, using the formula of the [id number]-OdpzqddSyiwfpx Glucose study (ADAG), Diabetes Care, Vol.31,#8,May. 2007 Blood Venous blood specimen / Unknown 08/03/2024 3:45 PM EDT 08/03/2024 6:03 PM EDT Corine Jin MD LAB BLOOD ORDERABLES Final Result [facility] [address] [place] [phone] * (ABNORMAL) Lipid Panel, Standard (08/03/2024 3:45 PM EDT) Triglycerides 276(H) <150 mg/dL [facility] Comment:Desirable Triglyceri de: less than 150 mg/dLBorderline High Triglyceride 150-199 mg/dLHigh Triglyceride: 200-499 mg/dLVery High Triglyceride: greater than or equal to 5OO mg/dL Cholesterol 250(H) <200 mg/dL [facility] Comment:Desirable Cholestero l: less than 200 mg/dLBorderline High Cholesterol: 200-239 mg/dLHigh Cholesterol: greater than 239 mg/dL LDL Cholesterol Calculated 110(H) <100 mg/dL [facility] Comment:Desirable LDL: less than 100 mg/dLNear Optimal/Above Optimal LDL: 110- 129 mg/dLBorderline High LDL: 130-159 mg/dLHigh LDL: 160-189 mg/dLVery High LDL: greater than or equal to 190 mg/dL HDL Cholesterol 85 >40 mg/dL [facility] Comment:Desirable HDL: great er than 40 mg/dL Note: This HDL assay may give artificially low results in patients with liver disease. Blood Venous blood specimen / Unknown 08/03/2024 3:45 PM EDT 08/03/2024 6:03 PM EDT Corine Jin MD LAB BLOOD ORDERABLES Final Result [facility] [address] [place] [address] [phone] from Last 3 Months or Most Recently Relevant to Health Maintenance [facility] [address] [place], [place] [address] ST[place] AD[place] Care Teams Internal Investigator Relationship Specialty Start Date End Date Corine Tobin MD [address] [place] [phone] PCP - General Internal Medicine 08/03/24
[2025-06-28 10:52] VITALS: BP 109/58; PULSE 90; RESP 20; O2SAT 96; BMI 33.8
--- NOTE | 2025-06-28 11:06 | HO.ANESPROP2 ---
HPI - Anesthesia Eval Consult details Narrative: *[facility] labs pending; pending reschedule date due to dental work 79 yr old female for right total knee replacement scheduled for 07/17/25, seen in PAT No recent illness. No CP/SOB with very minimal exertion, mainly a few minutes of walking a couple days per week. Optimized by PCP for surgery at preop visit 06/19/25 GERD: on PPI bid PMFSH Active Problems Active Problems: All Active Problems (Updated 06/28/25 @ 10:45 by Zuleyma Erazo RN) Low back pain (Acute) Osteoarthritis of right knee (Acute) Osteoarthritis of left knee (Acute) Arthritis of right knee (Acute) Arthritis of left knee (Acute) Past Medical History Medical History (Updated 06/28/25 @ 10:45 by Zuleyma Erazo RN) Chronic idiopathic constipation Elevated cholesterol HTN (hypertension) GERD (gastroesophageal reflux disease) Arthritis Family History Family history of problems with anesthesia: No Surgical History Surgical History (Updated 06/28/25 @ 11:08 by Zuleyma Erazo RN) Hx of hysterectomy History of Problems with Anesthesia: No Social History Social History Are you a primary patient care technician instructor to a significant other at home: No Do you presently have visiting nurse or other home services: No Patient Tobacco Use Status: Never used Tobacco Current occupational status: retired Current occupation: Right hand dominant Meds Allergies Allergy/AdvReac Type Severity Reaction Status Date / Time No Known Allergies Allergy Verified 06/13/25 13:18 Home Medications ?Medication ?Instructions ?Recorded ?Confirmed ?Last Taken ?Type acetaminophen 500 mg tablet 1,000 mg PO Q6H PRN moderate pain 11/17/23 06/28/25 Unknown History omeprazole 20 mg capsule,delayed 20 mg PO BID 09/27/24 06/28/25 Unknown History release amlodipine 5 mg tablet 5 mg PO QAM 06/27/25 06/28/25 Unknown History pravastatin 40 mg tablet 40 mg PO QAM 06/27/25 06/28/25 Unknown History Exam Height,Weight and Vital Signs: Height 5 ft Weight 78.471 kg Last Vital Signs Pulse 90 06/28/25 10:52 Resp 20 06/28/25 10:52 BP 109/58 L 06/28/25 10:52 Pulse Ox 96 06/28/25 10:52 O2 Del Method Room Air 06/28/25 10:52 Narrative Narrative: EKG 05/2025 NSR, rate 80, no acute ST-T wave changes Airway Mallampati Class: II TM Dist: >3cm Neck ROM: Full Partial: Upper Loose/Missing/Broken Teeth: No Heart: RRR Lungs: CTAB Assessment and Plan Final Anesthetic Review Family History of Problems with Anesthesia: No History of Problems with Anesthesia: No
[2025-06-28 13:08] LABS: MRSA Nasal PCR NEGATIVE (Negative); SA Nasal PCR NEGATIVE (Negative)
--- OUTSIDE RECORDS SUMMARY | 2025-08-07 09:20 | XMS_ITS | Clinical Summary ---
Author Organization [employer] Address [address] [facility] 7t [place] [address] Care Team Providers Care Bath Mix Operator Name Role Phone Corine Tobin MD Primary Care Provide r Allergies No known active allergies Medications docusate sodium (Colace) 100 MG capsuleIndicati ons:Chronic [...] up to 25 doses. 40 tablet 07/05/20 25 Active lidocaine (Lidoderm) 5 % patch Apply 1 patch topically Once per day. Remove & discard patch within 12 hours or as directed by MD. May use 2 patches at once 60 patch 2 07/05/20 25 026 Active diclofenac sodium 3 % gelIndications: Chronic back pain, unspecified back location, unspecified back pain laterality Apply topically 2 times daily. 100 g 1 07/17/20 25 Active Diclofenac Sodium 1 % gel Apply 4 g topically if needed in the morning, at noon, in the evening, and at bedtime (pain). 100 g 1 07/10/20 25 Active diclofenac sodium 3 % gel Apply topically 2 times daily. 100 g 1 10/14/20 23 025 Discontinued(Re order (will not trigger notification to Pharmacy)) amoxicillin-cla vulanate (Augmentin) 875-125 MG tablet Take 1 tablet by mouth 2 times daily for 7 days. 14 tablet 07/10/20 25 025 acetaminophen (Tylenol 8 Hour) 650 MG ER tablet Take 1 tablet (650 mg) by mouth every 8 (eight) hours if needed for moderate pain for up to 10 days. Do not crush, chew, or split. 15 tablet 07/10/20 25 025 Active Problems Problem Noted Date Diagnosed Date [...] Encounters Date Type Department Care Team Description 07/20/2025 Telephone [facility] [address] [place] [address] Mary Farrell, DDS 07/10/2025 1:30 PM EDT Office Visit [facility] [address] [place] [address] Geovani Villareal DDS Excessive attrition of teeth (Primary Dx); Periodontal disease 07/10/2025 1:00 PM EDT Office Visit [facility] [address] [place] [address] Mary Farrell DDS Dental caries (Primary Dx); Periodontal disease 07/10/2025 Orders Only [facility] [address] [place] [address] Marin Palomares MD 07/10/2025 Results Follow-Up [facility] [address] [place] [address] Marin Palomares MD XR Lumbar Spine 2-3 Views, XR Chest 2 Views 07/06/2025 Telephone [facility] [address] [place] [address] Corine Tobin MD NOV RECALL 07/05/2025 3:00 PM EDT Office Visit [facility] [address] [place] [phone] Marin Palomares MD Acute bilateral low back pain without sciatica (Primary Dx); Acute cough; Palpitations 07/05/2025 Travel 06/19/2025 9:45 AM EDT Office Visit [address] [address] Corine Tobin MD Preop examination; Primary hypertension; Prediabetes; Dyslipidemia; Urinary frequency 06/19/[address] [address] Corine Tobin MD Pre-op notes sent 06/19/2025 Travel 06/16/2025 Telephone [facility] [address] [place] [address] Corine Tobin MD Chart Prep 06/01/[address] [address] Corine Tobin MD preop 05/31/2025 2:00 PM EDT Office Visit [facility] [address] [place] [address] Kary Esquivel, OD Combined forms of age-related cataract of both eyes (Primary Dx); Presbyopia; Posterior vitreous detachment of left eye 05/31/2025 Travel 05/11/2025 1:00 PM EDT Office Visit [facility] [address] [place] [address] Tosin, Tia Tipped teeth (Primary Dx); Excessive attrition of teeth; Dental caries 05/11/2025 Refill [facility] [address] [place] [address] Corine Tobin MD Chronic idiopathic constipation; Primary hypertension; Gastroesophageal reflux disease, unspecified whether esophagitis present; Chronic gastric ulcer, unspecified whether gastric ulcer hemorrhage or perforation present 05/11/2025 Refill [facility] [address] [place] [address] Cynthia Roque DO Gastroesophageal reflux disease, unspecified whether esophagitis present; Chronic gastric ulcer, unspecified whether gastric ulcer hemorrhage or perforation present 05/11/2025 Refill [facility] [address] [place] [address] Mikayla Browning FNP from Last 3 Months Immunizations Immunization Administration [...] Care Team (Late st Contact Info) Description 08/23/2025 10:00 AM EDT Office Visit [facility] [address] [place] [address] Geovani Villareal DDS [address] [place] [address] 09/25/2025 2:30 PM EST Office Visit [facility] [address], [place] [phone] Corine Tobin MD [address] [place] [address] Health Maintenance Due Date Last Done Comments Dental Prophylaxis 1945 Alcohol/Substance Use Screening 1959 DTaP/Tdap/Td Vaccines (1 - Tdap) 12/29/1966 Zoster Vaccines (1 of 2) 12/29/1997 RSV Patients and Patients Aged 60 years or older (1 - 1-dose 75+ series) 12/29/2022 COVID-19 Vaccine (2023-2 5 season) 2025 Influenza Vaccine (#1) 2025 Diabetes: Hemoglobin A1C 08/03/2025 08/03/2024 Dental Oral [...] 3 EXTRACTION Routine 05/11/2025 12:00 AM EDT HEPATITIS C AB W/REFL TO HCV RNA, [...] PM EDT Narrative 07/07/2025 1:15 PM EDT [address] [address] XRay Report Signed Patient: Hafsa Bourgeois MR#: [id number] : 1945 Acct:[id number] Age/Sex: 79 / F ADM Date: 07/07/25 Loc: [facility] Attending Dr: Marin Palomares MD Ordering Physician: MARIN PALOMARES MD Date of Service: 07/07/25 Procedure(s): XR lumbar spine 2-3V Accession Number(s): [id number] cc: MARIN PALOMARES MD; Corine Tobin MD [...] 07/07/25 1312 DD/ 1305 TD/TT: 07/07/25 1307 Latcher: Procedure Note Donotuseinterpreter, Image - 07/07/[address] [address] XRay Report Signed Patient: Hafsa Bourgeois AMR#: [id number] : 8Acct:[id number] Age/Sex: 79 / FADM Date: 07/07/25 Loc: [facility] Attending Dr: Marin Palomares MD Ordering Physician: MARIN PALOMARES MD Date of Service: 07/07/25 Procedure(s): XR lumbar spine 2-3V Accession Number(s): [id number] cc: MARIN PALOMARES MD; Corine Tobin MD [...] Humphrey Roberson MD 07/07/2025 01:12 PM EDT RP Dictated By: Humphrey Roberson MD Signed By: <Electronically signed by Humphrey Roberson MD in OV> 07/07/25 1312 DD/ 1305 TD/TT: 07/07/25 1307 Latcher: Marin Palomares MD IMG XR PROCEDURES Final Result * XR Chest 2 Views (07/07/2025 12:37 PM EDT) Anatomical Region Laterality Modality Chest Radiographic Shireen ging 07/07/2025 12:3 7 PM EDT Narrative 07/07/2025 1:17 PM EDT [place] [address] XRay Report Signed Patient: Hafsa Bourgeois MR#: [id number] : 1945 Acct:[id number] Age/Sex: 79 / F ADM Date: 07/07/25 Loc: [facility] Attending Dr: Marin Palomares MD Ordering Physician: MARIN PALOMARES MD Date of Service: 07/07/25 Procedure(s): XR chest 2V Accession Number(s): [id number] cc: MARIN PALOMARES MD; Corine Tobin MD [...] 07/07/25 1314 DD/ 1237 TD/TT: 07/07/25 1307 Latcher: Procedure Note Donotuseinterpreter, Image - 07/07/2025 [place] [address] XRay Report Signed Patient: Hafsa Bourgeois AMR#: [id number] : 8Acct:[id number] Age/Sex: 79 / FADM Date: 07/07/25 Loc: [facility] Attending Dr: Marin Palomares MD Ordering Physician: MARIN PALOMARES MD Date of Service: 07/07/25 Procedure(s): XR chest 2V Accession Number(s): [id number] cc: MARIN PALOMARES MD; Corine Tobin MD [...] 07/07/25 1314 DD/ 1237 TD/TT: 07/07/25 1307 Latcher: us Marin Palomares MD IMG XR PROCEDURES Final Result * Culture, Urine, Routine (07/07/2025 11:21 AM EDT) Urine Urine specimen obtained by clean catch procedure / Unknown 07/07/2025 11:21 AM EDT 07/07/2025 1:08 PM EDT Comment:[facility] Narrative [facility] - 07/08/2025 12:26 PM EDT Urine Culture Report Result Urine Culture < 10,000 cfu/ml Specimen Source: Urine clean catch us Marin Palomares MD LAB MICROBIOLOGY - GENERAL ORDER SUHA Final Result Performing Organization Address [facility] de Phone Number [facility] [address] [place] [phone] * Influenza B (ID NOW Rapid Molecular) (07/05/2025 3:56 PM EDT) [facility] Influenza B Negative Negative, Indeterminate [facility] Swab 07/05/2025 3:56 PM EDT us Marin Palomares MD POINT OF CARE TEST ENTER/EDIT OR DERABLES Final Result Performing Organization Address [facility] Co de Phone Number [facility] [address] [place] [phone] * Influenza A (ID NOW Rapid Molecular) (07/05/2025 3:56 PM EDT) [facility] Influenza A Negative Negative, Indeterminate [facility] Swab 07/05/2025 3:56 PM EDT us Marin Palomares MD POINT OF CARE TEST ENTER/EDIT OR DERABLES Final Result [facility] [address] [place] [address] [phone] * POCT Rapid COVID Ag (07/05/2025 3:56 PM EDT) Pathologist [facility] Rapid COVID Ag Negative [facility] Swab 07/05/2025 3:56 PM EDT Marin Palomares MD POINT OF CARE TEST ENTER/EDIT OR DERABLES Final Result Performing Organization Address [facility] Co de Phone Number [facility] [address] [place] [address] [phone] * (ABNORMAL) CBC (06/28/2025 12:16 PM EDT) [facility] White Blood Count 6.1 4.8 - 10.8 X10*3/uL [facility] Red Blood Count 5.23 4.20 - 5.50 X10*6/uL [facility] Hemoglobin 12.2 12.0 - 16.0 g/dl [facility] Hematocrit 37.7 37.0 - 47.0 % [facility] Mean Corpuscular Volume 72.1(L) 80.0 - 98.0 fL [facility] Mean Corpuscular Hemoglobin 23.3(L) 27.0 - 33.0 pg [facility] Mean Corpuscular HGB Conc 32.4 31.0 - 35.0 g/dl [facility] Red Cell Distribution Width 17.1(H) 11.0 - 16.0 % [facility] Platelet Count 368 160 - 400 X10*3/uL [facility] Mean Platelet Volume 10.5 9.4 - 12.3 fL [facility] NRBC Pct Auto 0.0 0.0 - 0.2 /100WBC [facility] NRBC Abs Auto 0.000 0.0 - 0.012 X10*3/uL [facility] 06/28/2025 12:1 6 PM EDT 06/28/2025 1:16 PM EDT Generic External Data Provider LAB BLOOD ORDERAB LES Final Result Performing Organization Address [facility] Co de Phone Number [facility] [address] [place] [address] [phone] * (ABNORMAL) Basic Metabolic Panel (06/28/2025 12:16 PM EDT) Pathologist [facility] Sodium 142 135 - 145 mmol/L [facility] Potassium 4.2 3.3 - 5.1 mmol/L [facility] Chloride 108 96 - 108 mmol/L [facility] Carbon Dioxide 25 22 - 29 mmol/L [facility] Anion Gap 13 12 - 20 [facility] Urea Nitrogen (BUN) 17(H) 9 - 16 mg/dL [facility] Creatinine, Serum 0.68 0.5 - 1.4 mg/dL [facility] Estimated Glomerular Filt Rate >60 [facility] Comment:Chronic Kidney Disea se: Estimated GFR < 60 mL/min/1.22h0Idnxbr Kidney Disease: Estimated GFR < 15 mL/min/1.73m2 Glucose 88 60 - 115 mg/dL [facility] Calcium 9.1 8.4 - 10.2 mg/dL [facility] 06/28/2025 12:1 6 PM EDT 06/28/2025 1:21 PM EDT Generic External Data Provider LAB BLOOD ORDERAB LES Final Result Performing Organization Address [facility]/ZIP Co de Phone Number [facility] [address] [place] [address] [phone] * MRSA Nasal Screen (06/28/2025 11:00 AM EDT) Pathologist [facility] MRSA Nasal PCR NEGATIVE Negative [facility] SA Nasal PCR NEGATIVE Negative [facility] MRSA Interpretation SEE NOTE [facility] Comment:MRSA target DNA not detected; SA target DNA not detected.A MRSA NEGATIVE, SA NEGATIVE test result does not precludeMRSA or SA nasal colonization. 06/28/2025 11:0 0 AM EDT 06/28/2025 11:34 AM EDT Generic External Data Provider LAB MICROBIOLOGY - GENERAL ORDERABLES Final Result [facility] [address] [place] [phone] * ECG 12 lead (06/19/2025 12:15 PM EDT) Narrative Corine Tobin MD - 06/19/2025 12:15 PM EDT Normal sinus rhythm heart rate 80 Corine Jin MD ECG ORDERABLES Final Result [...] yellow Urine 06/19/2025 10:5 6 AM EDT Corine Jin MD POINT OF CARE TEST EN TER/EDIT ORDERABLES Final Result * Hepatitis C Antibody with Reflex to HCV, RNA, Quantitative, Real-Time PCR (08/03/2024 3:45 PM EDT) Hepatitis C Antibody Nonreactive Nonreactive [facility] Comment:Antibodies to HCV no t detected; does not exclude early acuteHCV infection. Blood Venous blood specimen / Unknown 08/03/2024 3:45 PM EDT 08/03/2024 6:03 PM EDT Corine Jin MD LAB BLOOD ORDERABLES Final Result Performing Organization Address [facility] Co de Phone Number [facility] [address] [place] [phone] * (ABNORMAL) Hemoglobin A1c (08/03/2024 3:45 PM EDT) Hemoglobin A1c 6.1(H) <6.0 % [facility] Comment:Hemoglobin A1C Refer ence Range Adults: 4.8 - 6.0 % Non diabetic: < 6.0 % Goal: < 7.0 %Additional Action Suggested: > 8.0 %Note: Hemoglobin A1c results are invalid for patients with abnormal amounts of HbF. Blood transfusions may impact the HbA1c concentration in the patient sample. Estimated Average Glucose 128 mg/dL [facility] Comment:eAG = Estimated ave rage glucose which is %A1C expressed asaverage glucose, using the formula of the A7I-AprmrviYjgsqtd Glucose study (ADAG), Diabetes Care, Vol.31,#8,May. 2007 Blood Venous blood specimen / Unknown 08/03/2024 3:45 PM EDT 08/03/2024 6:03 PM EDT us Corine Jin MD LAB BLOOD ORDERABLES Final Result Performing Organization Address [facility] Co de Phone Number [facility] [address] [place] [phone] * (ABNORMAL) Lipid Panel, Standard (08/03/2024 3:45 PM EDT) Triglycerides 276(H) <150 mg/dL [facility] Comment:Desirable Triglyceri de: less than 150 mg/dLBorderline High Triglyceride 150-199 mg/dLHigh Triglyceride: 200-499 mg/dLVery High Triglyceride: greater than or equal to 5OO mg/dL Cholesterol 250(H) <200 mg/dL [facility] Comment:Desirable Cholestero l: less than 200 mg/dLBorderline High Cholesterol: 200-239 mg/dLHigh Cholesterol: greater than 239 mg/dL LDL Cholesterol Calculated 110(H) <100 mg/dL [facility] Comment:Desirable LDL: less than 100 mg/dLNear Optimal/Above Optimal LDL: 110- 129 mg/dLBorderline High LDL: 130-159 mg/dLHigh LDL: 160-189 mg/dLVery High LDL: greater than or equal to 190 mg/dL HDL Cholesterol 85 >40 mg/dL [facility] Comment:Desirable HDL: great er than 40 mg/dL Note: This HDL assay may give artificially low results in patients with liver disease. Blood Venous blood specimen / Unknown 08/03/2024 3:45 PM EDT 08/03/2024 6:03 PM EDT us Corine Jin MD LAB BLOOD ORDERABLES Final Result [facility] [address] [place] [address] [phone] from Last 3 Months or Most Recently Relevant to Health Maintenance Insurance Advanced Image [employer] STANDARD [employer] ST[facility] ST[facility] ADULT Care Teams Bath Mix Operator Relationship Specialty Start Date End Date Corine Tobin MD [address] [place] [phone] PCP - General Internal Medicine 08/03/24
--- OUTSIDE RECORDS SUMMARY | 2025-08-07 09:20 | XMS_ITS | Encounter Summary ---
Author Organization [email or web address] Address [address] [facility] [address] [place] [address] Care Team Providers Care Sheet Sorter Name Role Phone Corine Tobin MD Primary Care Provide r Encounter Details Date Type Department Care Team (Late st Contact Info) Description 01/18/2024 Telephone [facility] [address] [place] [phone] Rogelio Dobbs MD [address] [place] [phone] Social History Tobacco Use Types Packs/Day Years [...] Description 08/23/2025 10:00 AM EDT Office Visit [facility] [address] [place] [phone] Geovani Villareal DDS [address] [place] [phone] 09/25/2025 2:30 PM EST Office Visit [facility] [address] [place] [phone] Corine Tobin MD [address] [place] [address] documented as of this encounter Visit Diagnoses Not on filedocumented in this encounter Care Teams Sheet Sorter Relationship Specialty Start Date End Date Corine Tobin MD [address] [place], [place] [phone] PCP - General Internal Medicine 08/03/24 documented as of this encounter
--- OUTSIDE RECORDS SUMMARY | 2025-08-07 09:20 | XMS_ITS | Encounter Summary ---
Author Organization [employer] Address [address] [facility] 7t [place] [address] Care Team Providers Care Turner Machine Operator Name Role Phone Corine Tobin MD Primary Care Provide r Reason for Visit * Reason Onset Date Comments Results 07/10/2025 Encounter Details Date Type Department Care Team ([facility] st Contact Info) Description 07/10/2025 Results Follow-Up [facility] [address] [place] [address] Marin Burgess MD [address] [place] [address] XR Lumbar Spine 2-3 Views, XR Chest [...] Description 08/23/2025 10:00 AM EDT Office Visit [facility] [address] [place] [address] Geovani Villareal DDS [address] [place] [address] 09/25/2025 2:30 PM EST Office Visit [facility] [address] [place] [address] Corine Tobin MD [address] [place] [phone] documented as of this encounter Visit Diagnoses Diagnosis Chronic back pain, unspecified back location, unspecified back pain laterality documented in this encounter Additional Health Concerns Assessment Noted Time PHQ-9 Depression Total Score: 0 06/19/20 25 10:05 AM EDT documented as of this encounter Care Teams Turner Machine Operator Relationship Specialty Start Date End Date Corine Tobin MD [address] [place] [phone] PCP - General Internal Medicine 08/03/24 documented as of this encounter
== END 2025-06-28 00:01 | disposition home or self-care (01) ==
LOC: HO.PAT
PROVIDERS: Physician Assistant; PCP Internal Medicine; Visit Provider Orthopaedic Surgery
DX: Z01.818 Encounter for other preprocedural examination (principal); M17.11 Unilateral primary osteoarthritis, right knee
CPT/HCPCS: 87640; 87641

== ENCOUNTER 2025-06-28 11:53 | Outpatient (REF) | payer MEDICAID, SELFPAY ==
[2025-06-28 13:34] LABS: Hematocrit 37.7 % (37.0-47.0); Hemoglobin 12.2 g/dl (12.0-16.0); Mean Corpuscular HGB Conc 32.4 g/dl (31.0-35.0); Mean Corpuscular Hemoglobin 23.3 pg (27.0-33.0); Mean Corpuscular Volume 72.1 fL (80.0-98.0); NRBC Abs Auto 0.000 X10*3/uL (0.0-0.012); NRBC Pct Auto 0.0 /100WBC (0.0-0.2); Platelet Count 368 X10*3/uL (160-400); Red Blood Count 5.23 X10*6/uL (4.20-5.50); White Blood Count 6.1 X10*3/uL (4.8-10.8)
[2025-06-28 14:11] LABS: Anion Gap 13 (12-20); Blood Urea Nitrogen 17 mg/dL (9-16); Calcium 9.1 mg/dL (8.4-10.2); Carbon Dioxide 25 mmol/L (22-29); Chloride 108 mmol/L (96-108); Estimated Glomerular Filt Rate > 60; Potassium 4.2 mmol/L (3.3-5.1); Sodium 142 mmol/L (135-145)
--- OUTSIDE RECORDS SUMMARY | 2025-06-28 14:29 | XMS_ITS | Clinical Summary ---
Author Organization [employer] Address [address] [facility] [address] [place] [address] Care Team Providers Care Farm Assistant Name Role Phone Corine Tobin MD Primary [...] daily. 100 g 1 10/14/20 23 Active docusate sodium (Colace) 100 MG capsuleIndicati ons:Chronic idiopathic constipation TAKE 1 CAPSULE BY MOUTH TWICE DAILY 180 capsule 2 05/12/20 25 Active omeprazole (PriLOSEC) 20 [...] NEEDED 30 g 2 05/12/20 25 Active lisinopril 5 MG tabletIndicatio ns:Primary hypertension Take 1 tablet (5 mg) by mouth Once per day. 30 tablet 11 06/19/20 25 06/19/ 026 Active pravastatin (Pravachol) 40 MG tabletIndicatio ns:Primary hypertension,Dy slipidemia Take 1 tablet (40 mg) by mouth Once per day. 90 tablet 1 06/19/20 026 Active oxybutynin XL (Ditropan XL) 5 MG 24 hr tabletIndicatio ns:Urinary frequency Take 1 tablet (5 mg) by mouth Once per day. Do not crush, chew, or split. 30 tablet 11 06/19/20 026 Active pravastatin (Pravachol) 40 MG tabletIndicatio ns:Primary hypertension,Dy slipidemia Take 1 tablet (40 mg) by mouth Once per day. 90 tablet 1 12/02/19 025 Discontinued(Re order (will not trigger notification to Pharmacy)) amLODIPine (Norvasc) 5 MG tabletIndicatio ns:Primary hypertension TAKE 1 TABLET BY MOUTH EVERY DAY 90 tablet 2 05/12/20 025 Discontinued Active Problems Problem Noted Date Diagnosed Date Preop examination 06/19/2025 Assessment & Plan (06/19/2025 12:14 PM EDT): RCRI score is 0 which means she has a 0.5% risk I advised n.p.o. after midnight for the procedure I advised to take her medication for blood pressure the morning of the procedure with a small sip of water EKG done at office normal sinus rhythm heart rate is 80 Surgery should proceed as scheduled Urinary frequency 06/19/2025 Assessment & Plan (06/19/2025 12:13 PM EDT): UA done is normal I will prescribe for her oxybutynin 5 mg once a day Chronic idiopathic constipation 12/02/2024 Assessment & Plan (12/05/2024 5:15 PM EST): I advised to drink more water add more fiber to her diet I will prescribe the patient Colace and MiraLAX Abdominal wall lump 12/02/2024 Assessment & Plan (12/05/2024 5:15 PM EST): I will order a CT of the abdomen for further evaluation patient will be contacted with results GERD (gastroesophageal reflux disease) 4 Chronic gastric ulcer 08/30/2024 Assessment & Plan (08/30/2024 4:46 PM EST): I advise patient to avoid NSAIDs, spicy and acid food, I advise to eat at the same time every day, I advise to elevate the head of the bed and take medications as prescribe Primary hypertension 08/30/2024 Assessment & Plan (06/19/2025 12:10 PM EDT): Patient has not been taking her amlodipine because it causes swelling of ankles and legs, I discontinue the medication for this reason and instead I put her on lisinopril 5 mg daily, I advised low-sodium diet continue to take pravastatin 40 mg daily Assessment & Plan (12/05/2024 5:14 PM EST): [...] first consulting health care provider Dyslipidemia 08/30/2024 Assessment & Plan (06/19/2025 12:10 PM EDT): Continue with pravastatin 40 mg daily Counseling about healthy diet done today Prediabetes 08/30/2024 Assessment & Plan (12/05/2024 5:15 [...] Encounters Date Type Department Care Team Description 06/19/2025 9:45 AM EDT Office Visit [facility] [address] [place] [phone] Corine Tobin MD Preop examination; Primary hypertension; Prediabetes; Dyslipidemia; Urinary frequency 06/19/2025 Telephone [facility] [address] [place] [phone] Corine Tobin MD Pre-op notes sent 06/19/2025 Travel 06/16/2025 Telephone [facility] [address] [place] [address] Corine Tobin MD Chart Prep 06/01/[address] [address] Corine Tobin MD preop 05/31/2025 2:00 PM EDT Office Visit [facility] OPT[facility] [address] [place] [address] Tarka, Kary, OD Combined forms of age-related cataract of both eyes (Primary Dx); Presbyopia; Posterior vitreous detachment of left eye 05/31/2025 Travel 05/11/2025 1:00 PM EDT Office Visit [facility] ADULT DENTAL [address] [place] [address] Tosin, Tia Tipped teeth (Primary Dx); Excessive attrition of teeth; Dental caries 05/11/2025 Refill [facility] [address] [place] [address] Corine Tobin MD Chronic idiopathic constipation; Primary hypertension; Gastroesophageal reflux disease, unspecified whether esophagitis present; Chronic gastric ulcer, unspecified whether gastric ulcer hemorrhage or perforation present 05/11/2025 Refill [facility] [address] [place] [address] Cynthia Roque DO Gastroesophageal reflux disease, unspecified whether esophagitis present; Chronic gastric ulcer, unspecified whether gastric ulcer hemorrhage or perforation present 05/11/2025 Refill [facility] [address] [place] [address] Mikayla Browning FNP 04/27/2025 Results Follow-Up [facility] [address] [place] [address] Abdomen w/ Contrast from Last 3 Months Immunizations Immunization Administration Dates Next Due Pneumococcal Conjugate PCV 20 08/03/2024 Social History Tobacco Use Types Packs/Day Years Used Date Smoking Tobacco: Never Passive Smoke Exposure: Never Smokeless Tobacco: Never Tobacco Cessation:Counseling Given: Not Answered Alcohol Use Standard Drinks/Week Comments Never 0 (1 standard drink = 0.6 oz pur e alcohol) Depression Answer Date Recorded Patient Health Questionnaire-9 Score 0 06/19/2025 Patient Health Questionnaire-9 Score 0 06/19/2025 Last PHQ-9: Questionnaire Data Not on file 0 06/19/2025 Housing Stability Answer Date Recorded What is your housing situation today? I have maloujohn shaw 08/03/[address] you [...] Answer Date Recorded Patient Health Questionnaire-2 Score 0 06/19/2025 Internet Access Answer Date Recorded Internet Access [...] Reading Time Taken Comments Blood Pressure 142/88 06/19/2025 9:55 AM EDT Pulse 80 06/19/2025 9:55 AM EDT Temperature 36.2 C (97.1 F) 06/19/2025 9:55 AM EDT Respiratory Rate 16 06/19/2025 9:55 AM EDT Oxygen Saturation 98% 09/13/2024 3:09 PM EST Inhaled Oxygen Concentration - - Weight 77.5 kg (170 lb 12.8 oz) 06/19/2025 9:55 AM EDT Height 152.4 cm (5') 06/19/2025 9:55 AM EDT Body Mass Index 33.36 06/19/2025 9:55 AM EDT Plan of Treatment Upcoming Encounters Date Type Department Care Team (Late st Contact Info) Description 06/29/2025 10:30 AM EDT Office Visit [facility] ADULT DENTAL [address] [facility] [address] Geovani Villareal DDS [address] [place] [address] Health Maintenance Due Date Last Done Comments Dental Prophylaxis 1945 DTaP/Tdap/Td Vaccines (1 - Tdap) 12/29/1966 Zoster Vaccines (1 of 2) 12/29/1997 RSV Patients and Patients Aged 60 years or older (1 - 1-dose 75+ series) 12/29/2022 COVID-19 Vaccine ( - 2023-2 5 season) 2025 Influenza Vaccine (#1) 2025 Alcohol/Substance Use Screening 08/03/2025 08/03/2024 Diabetes: Hemoglobin A1C 08/03/2025 08/03/2024 Dental Oral Exam 11/12/2025 05/11/2025 SDOH Screening 11/21/2025 11/21/2024 Dental X-Ray: Bitewings 05/12/2026 05/11/2025 Depression Screening 06/19/2026 06/19/2025, 06/19/2025 Tobacco Screening 06/19/2026 06/19/2025 Dental X-Ray: Full Mouth 05/12/2028 05/11/2025 Lipid [...] Procedure Name Priority Date/Time Associated Diagnosis Comments BASIC METABOLIC PANEL Routine 06/28/2025 12:16 PM EDT Abdominal wall lump CBC Routine 06/28/2025 12:16 PM EDT Abdominal wall lump MRSA NASAL SCREEN Routine 06/28/2025 11: 00 AM EDT Abdominal wall lump ECG 12-LEAD Routine 06/19/2025 12:15 PM EDT Preop examination POCT URINALYSIS DIPSTICK Routine 06/19/2025 10:56 AM EDT Urinary frequency COMPREHENSIVE ORAL EVALUATION - NEW OR ESTABLISHED [...] Recently Relevant to Health Maintenance Results * (ABNORMAL) CBC (06/28/2025 12:16 PM EDT) White Blood Count 6.1 4.8 - 10.8 X10*3/uL [facility] Red Blood Count 5.23 4.20 - 5.50 X10*6/uL [facility] Hemoglobin 12.2 12.0 - 16.0 g/dl [facility] Hematocrit 37.7 37.0 - 47.0 % [facility] Mean Corpuscular Volume 72.1(L) 80.0 - 98.0 fL [facility] Mean Corpuscular Hemoglobin 23.3(L) 27.0 - 33.0 pg [facility] Mean Corpuscular HGB Conc 32.4 31.0 - 35.0 g/dl [facility] Red Cell Distribution Width 17.1(H) 11.0 - 16.0 % [facility] Platelet Count 368 160 - 400 X10*3/uL [facility] Mean Platelet Volume 10.5 9.4 - 12.3 fL [facility] NRBC Pct Auto 0.0 0.0 - 0.2 /100WBC [facility] NRBC Abs Auto 0.000 0.0 - 0.012 X10*3/uL [facility] 06/28/2025 12:1 6 PM EDT 06/28/2025 1:16 PM EDT us Generic External Data Provider LAB BLOOD ORDERAB LES Final Result Performing Organization Address [facility] Co de Phone Number [facility] [address] [place] [phone] * (ABNORMAL) Basic Metabolic Panel (06/28/2025 12:16 PM EDT) Pathologist [facility] Sodium 142 135 - 145 mmol/L [facility] Potassium 4.2 3.3 - 5.1 mmol/L [facility] Chloride 108 96 - 108 mmol/L [facility] Carbon Dioxide 25 22 - 29 mmol/L [facility] Anion Gap 13 12 - 20 [facility] Urea Nitrogen (BUN) 17(H) 9 - 16 mg/dL [facility] Creatinine, Serum 0.68 0.5 - 1.4 mg/dL [facility] Estimated Glomerular Filt Rate >60 [facility] Comment:Chronic Kidney Disea se: Estimated GFR < 60 mL/min/1.97z8Svrhre Kidney Disease: Estimated GFR < 15 mL/min/1.73m2 Glucose 88 60 - 115 mg/dL [facility] Calcium 9.1 8.4 - 10.2 mg/dL [facility] 06/28/2025 12:1 6 PM EDT 06/28/2025 1:21 PM EDT Generic External Data Provider LAB BLOOD ORDERAB LES Final Result Performing Organization Address [facility] Co de Phone Number [facility] [address] [place] [phone] * MRSA Nasal Screen (06/28/2025 11:00 AM EDT) Pathologist [facility] MRSA Nasal PCR NEGATIVE Negative [facility] SA Nasal PCR NEGATIVE Negative [facility] MRSA Interpretation SEE NOTE [facility] Comment:MRSA target DNA not detected; SA target DNA not detected.A MRSA NEGATIVE, SA NEGATIVE test result does not precludeMRSA or SA nasal colonization. 06/28/2025 11:0 0 AM EDT 06/28/2025 11:34 AM EDT us Generic External Data Provider LAB MICROBIOLOGY - GENERAL ORDERABLES Final Result [facility] [address] [place] [phone] * ECG 12 lead (06/19/2025 12:15 PM EDT) Narrative Corine Tobin MD - 06/19/2025 12:15 PM EDT Normal sinus rhythm heart rate 80 us Corine Jin MD ECG ORDERABLES Final Result * POCT Urinalysis (06/19/2025 10:56 AM EDT) Color, UA Light Yellow Clarity, UA Clear Glucose, UA Negative Bilirubin, UA Negative Ketones, UA Negative Spec Grav, UA 1.015 Blood, UA Negative Negative, None Detected pH, UA 7.0 Protein, UA Negative Urobilinogen, UA 0.2 Leukocytes, UA Negative Negative, Rare, Trace Nitrite, UA Negative Negative, None Detected Appearance, UA light yellow Urine 06/19/2025 10:5 6 AM EDT us Corine Jin MD POINT OF CARE TEST EN TER/EDIT ORDERABLES Final Result * CT Abdomen w/ Contrast (04/27/2025 10:09 AM EDT) Anatomical Region Laterality Modality Body, Abdomen Computed Tomogra phy 04/27/2025 10:0 9 AM EDT Narrative 04/27/2025 10:11 AM EDT [address] [address] [address] Scan Report Signed Patient: Hafsa Bourgeois MR#: [id number] : 1945 Acct:[id number] Age/Sex: 79 / F ADM Date: 04/25/25 Loc: HO.CT Attending Dr: Corine Jin MD Ordering Physician: Corine Tobin MD Date of Service: 04/25/25 Procedure(s): CT abdomen w IV con Accession Number(s): [id number] cc: Corine Tobin MD Report Number: [id number]: Total DLP = 355.00 mGy-cm CLINICAL HISTORY: [...] OV> 04/27/25 1011 DD/ 1009 TD/TT: 04/27/25 1009 Chemistry Department Chair: Procedure Note Donotuseinterpreter, Image - 04/27/[address] [place] [address] [address] Scan Report Signed Patient: Hafsa Bourgeois [facility]#: [id number] : 8Acct:[id number] Age/Sex: 79 / FADM Date: 04/25/25 Loc: HO.CT Attending Dr: Corine Jin MD Ordering Physician: Corine Tobin MD Date of Service: 04/25/25 Procedure(s): CT abdomen w IV con Accession Number(s): [id number] cc: Corine Tobin MD Report Number: [id number]: Total DLP = 355.00 mGy-cm CLINICAL HISTORY: [...] OV> 04/27/25 1011 DD/ 1009 TD/TT: 04/27/25 1009 Chemistry Department Chair: Corine Jin MD IMG CT PROCEDURES Din[place] Result - Final * POCT Creatinine GFR (04/25/2025 11:59 AM EDT) POCT Creatinine 0.7 0.5 - 1.4 mg/dL [facility] GFR POC >60 [facility] Comment:Chronic Kidney Disea se: Estimated GFR < 60 mL/min/1.01a0Gcvxlq Kidney Disease: Estimated GFR < 15 mL/min/1.73m2 04/25/2025 11:5 9 AM EDT 04/25/2025 4:03 PM EDT Narrative [facility] - 04/25/2025 4:05 PM EDT [id number] Result [facility] Corine Jin MD LAB POINT OF CARE TEST DOCKED DEVICE ORDERABLES Final Result [facility] [address] [place] [phone] * Hepatitis C Antibody with Reflex to HCV, RNA, Quantitative, Real-Time PCR (08/03/2024 3:45 PM EDT) Hepatitis C Antibody Nonreactive Nonreactive [facility] Comment:Antibodies to HCV no t detected; does not exclude early acuteHCV infection. Blood Venous blood specimen / Unknown 08/03/2024 3:45 PM EDT 08/03/2024 6:03 PM EDT Corine Jin MD LAB BLOOD ORDERABLES Final Result Performing Organization Address [facility] Co de Phone Number [facility] [address] [place] [phone] * (ABNORMAL) Hemoglobin A1c (08/03/2024 3:45 PM EDT) Hemoglobin A1c 6.1(H) <6.0 % [facility] Comment:Hemoglobin A1C Refer ence Range Adults: 4.8 - 6.0 % Non diabetic: < 6.0 % Goal: < 7.0 %Additional Action Suggested: > 8.0 %Note: Hemoglobin A1c results are invalid for patients with abnormal amounts of HbF. Blood transfusions may impact the HbA1c concentration in the patient sample. Estimated Average Glucose 128 mg/dL [facility] Comment:eAG = Estimated ave rage glucose which is %A1C expressed asaverage glucose, using the formula of the [id number] Glucose study (ADAG), Diabetes Care, Vol.31,#8,May. 2007 Blood Venous blood specimen / Unknown 08/03/2024 3:45 PM EDT 08/03/2024 6:03 PM EDT [facility] Susan Jin MD LAB BLOOD ORDERABLES Final Result Performing Organization Address [facility] Co de Phone Number [facility] [address] [place] [phone] * (ABNORMAL) Lipid Panel, Standard (08/03/2024 3:45 PM EDT) Triglycerides 276(H) <150 mg/dL [facility] Comment:Desirable Triglyceri de: less than 150 mg/dLBorderline High Triglyceride 150-199 mg/dLHigh Triglyceride: 200-499 mg/dLVery High Triglyceride: greater than or equal to 5OO mg/dL Cholesterol 250(H) <200 mg/dL [facility] Comment:Desirable Cholestero l: less than 200 mg/dLBorderline High Cholesterol: 200-239 mg/dLHigh Cholesterol: greater than 239 mg/dL LDL Cholesterol Calculated 110(H) <100 mg/dL [facility] Comment:Desirable LDL: less than 100 mg/dLNear Optimal/Above Optimal LDL: 110- 129 mg/dLBorderline High LDL: 130-159 mg/dLHigh LDL: 160-189 mg/dLVery High LDL: greater than or equal to 190 mg/dL HDL Cholesterol 85 >40 mg/dL [facility] Comment:Desirable HDL: great er than 40 mg/dL Note: This HDL assay may give artificially low results in patients with liver disease. Blood Venous blood specimen / Unknown 08/03/2024 3:45 PM EDT 08/03/2024 6:03 PM EDT us Corine Jin MD LAB BLOOD ORDERABLES Final Result [facility] [address] [place] [address] [phone] from Last 3 Months or Most Recently Relevant to Health Maintenance Insurance [employer] [facility] ADULT Care Teams Farm Assistant Relationship Specialty Start Date End Date Corine Tobin MD [address] [place] [phone] PCP - General Internal Medicine 08/03/24
--- OUTSIDE RECORDS SUMMARY | 2025-06-28 14:29 | XMS_ITS | Encounter Summary ---
Author Organization [employer] Address [address] [facility] [address] [place] [address] Care Team Providers Care [place] Hardware Installer Name Role Phone Corine Tobin MD Primary Care Provide r Encounter Details Date Type Department Care Team (Late st Contact Info) Description 01/18/2024 Telephone [facility] [address] [place] [phone] Rogelio Dobbs MD [address] [place] [phone] Social History Tobacco Use Types Packs/Day Years [...] Description 06/29/2025 10:30 AM EDT Office Visit [facility] ADULT DENTAL [address] [place] [phone] Geovani Villareal DDS [address] [place] [address] documented as of this encounter Visit Diagnoses Not on filedocumented in this encounter Care Teams [place] Hardware Installer Relationship Specialty Start Date End Date Corine Tobin MD [address] [place] [address] PCP - General Internal Medicine 08/03/24 documented as of this encounter
== END 2025-06-28 11:54 | disposition home or self-care (01) ==
LOC: HO.HHCL 11:53
PROVIDERS: PCP Internal Medicine; Visit Provider Physician Assistant
DX: Z01.818 Encounter for other preprocedural examination (principal)
CPT/HCPCS: 36415; 80048; 85027

== ENCOUNTER 2025-07-07 11:13 | Outpatient (REF) | payer MEDICAID, SELFPAY ==
--- NOTE | ~2025-07-07 | XR_ITS ---
EXAMINATION: XR LUMBOSACRAL SPINE CLINICAL INFORMATION: cough COMPARISON: CT from April 25, 2025 TECHNIQUE: Three views of the lumbosacral spine. FINDINGS: There are 5 nonrib-bearing segments in the lumbar spine. There is mild levoscoliosis. Multilevel degenerative changes are noted. Vertebral body height is maintained. XR/XR lumbar spine 2-3V IMPRESSION: Multilevel degenerative changes and mild levoscoliosis without acute abnormality. Electronically signed by: Humphrey Roberson MD 07/07/2025 01:12 PM EDT
--- NOTE | ~2025-07-07 | XR_ITS ---
EXAMINATION: XR CHEST CLINICAL INFORMATION: 5 day h/o cough COMPARISON: CT abdomen and pelvis April 25, 2025 TECHNIQUE: 2 views of the chest were obtained. FINDINGS: There is masslike density with central lucency present in the posterior lower chest consistent with a hiatal involving gastric fundus. Lungs are clear and well aerated. Heart size is enlarged. XR/XR chest 2V IMPRESSION: Cardiomegaly. Hiatal hernia involving gastric fundus. Electronically signed by: Humphrey Roberson MD 07/07/2025 01:14 PM EDT
== END 2025-07-07 11:14 | disposition home or self-care (01) ==
LOC: HO.HHCL 11:13
PROVIDERS: PCP Internal Medicine; Visit Provider Emergency Medicine
DX: R05.1 Acute cough (principal); M54.50 Low back pain, unspecified
CPT/HCPCS: 71046; 72100; 87086

== ENCOUNTER → 2025-07-07 11:46 | Outpatient (BNV) | payer MEDICAID, SELFPAY | PROVIDERS: PCP Internal Medicine; Visit Provider Radiology Diagnostic Radiology | DX: M51.360 Other intervertebral disc degeneration, lumbar region with discogenic back pain only (principal); R05.9 Cough, unspecified | CPT/HCPCS: 71046; 72100 ==

== ENCOUNTER 2025-07-13 08:34 | Outpatient (REF) | payer MEDICAID, SELFPAY ==
--- OUTSIDE RECORDS SUMMARY | 2025-07-10 13:00 | XMS_ITS | Encounter Summary ---
Author Organization [employer] Address [address] [facility] 7[address] [place] [address] Care Team Providers Care Renal Medicine Specialist Name Role Phone Corine Tobin MD Primary Care Provide r Reason for Visit * Reason Comments Dental Pain Encounter Details Date Type Department Care Team (Late st Contact Info) Description 07/10/2025 1:00 PM EDT Office Visit [facility] [address] [place] [address] Goldstein-AllenCarol conroymia, DDS [address] [place] [address] Dental caries (Primary Dx); Periodontal disease Social History Tobacco Use Types Packs/Day Years [...] AM EST documented as of this encounter Last Filed Vital Signs Vital Sign Reading Time Taken Comments Blood Pressure 110/68 07/10/2025 1:18 PM EDT Pulse - - Temperature - - Respiratory Rate - - Oxygen Saturation - - Inhaled Oxygen Concentration - - Weight - - Height - - Body Mass Index - - documented in this encounter Progress Notes * Mary Farrell DDS - 07/10/2025 1:00 PM EDT Dental procedures in this visit D9110 - PALLIATIVE (EMERGENCY) TREATMENT OF DENTAL PAIN - MINOR PROCEDURE (Completed) Service provider: Mary Farrell DDS Billing provider: Mary Farrell DDS D0220 - INTRAORAL - PERIAPICAL FIRST RADIOGRAPHIC IMAGE (Completed) Service provider: Mary Farrell DDS Billing provider: Mary Farrell DDS D9450 - CASE PRESENTATION, DETAILED AND EXTENSIVE TREATMENT PLANNING (Completed) Service provider: Mary Farrell DDS Billing provider: Mary Farrell DDS Patient ID: Hafsa Bourgeois is a 79 y.o. female. Time Out: Timeout Date: 07/10/25, Timeout Time: 1318 (Time out for dental emergency) Location: [facility] Tooth: #31 Procedure: Emergency Verified the above with patient, surgery assistant, and provider. Confirmed via patient's chart, intraorally and by radiographs. Employment Specialist/Program Manager: not applicable Chief Complaint Patient presents with Dental Pain Medical Hx: Vitals: Blood pressure 110/68. Medical History[1] Medications: Encounter Medications[2] Subjective: Pain: moderate, severe Duration: 1 weeks Objective: Tooth: #31 Radiographs Taken: PA(s) Radiographic Findings: bone loss, tooth drifted mesially, recurrent decay OL. Mobility type I. Large B and external LR side of the face abscess. Clinical Findings: positive to palpation, inflammation oisberved. Swelling: Extraoral swelling, Tenderness, and Intraoral swelling Endo Testing: Cold: Hypersensitive, lingering Percussion: Pain Palpation: Pain The patient is facing the need for multiple tooth extractions, with surgery set for Thursday, July 17. It is crucial to assess whether she can safely undergo knee surgery without complications and to confirm whether she requires dental treatment and clearance beforehand. Notably, there is an abscessed tooth on the lower right side, and we have an extraction planned forthis week. The patient is currently receiving antibiotic treatment to address the infection. Prioritizing her dental health is essential to ensuring a smooth and successful outcome for her upcoming surgery. Let's ensure we take all necessary steps for her Diagnosis: Dental Abscess Assessment/Plan: Referred for ext Prescriptions: Amoxicillin 875 mg/bid/7 days 14 tabs Tylenol 650 mg/tid/prn 15 tabs Pt tolerated procedure well, all questions answered. Dismissed in good condition. NV: Ext - Dr. Villareal will proceed with ext today. Consolidation Accountant: Cynthia Armas Dentist: Mary Farrell DDS [1] Past Medical History: Diagnosis Date Arthritis GERD (gastroesophageal reflux disease) Hypertension [2] Outpatient Encounter Medications as of 07/10/2025 Medication Sig Dispense Refill acetaminophen (Tylenol 8 Hour) 650 MG ER tablet Take 1 tablet (650 mg) by mouth every 8 (eight) hours if needed for moderate pain for up to 10 days. Do not crush, chew, or split. 15 tablet 0 acetaminophen (Tylenol) 500 MG tablet Take 2 tablets (1,000 mg) by mouth every 6 (six) hours if needed for moderate pain or fever for up to 25 doses. 40 tablet 0 amoxicillin-clavulanate (Augmentin) 875-125 MG tablet Take 1 tablet by mouth 2 times daily for 7 days. 14 tablet 0 Diclofenac Sodium 1 % gel Apply 4 g topically if needed in the morning, at noon, in the evening, and at bedtime (pain). 100 g 1 diclofenac sodium 3 % gel Apply topically 2 times daily. 100 g 1 docusate sodium (Colace) 100 MG capsule TAKE 1 CAPSULE BY MOUTH TWICE DAILY 180 capsule 2 hydrocortisone 1 % cream APPLY TO ANAL AREA TWICE DAILY NEEDED 30 g 2 lidocaine (Lidoderm) 5 % patch Apply 1 patch topically Once per day. Remove & discard patch within 12 hours or as directed by MD. May use 2 patches at once 60 patch 2 lisinopril 5 MG tablet Take 1 tablet (5 mg) by mouth Once per day. 30 tablet 11 omeprazole (PriLOSEC) [address] capsule TAKE 1 CAPSULE BY MOUTH TWICE DAILY IN THE MORNING AND IN THE EVENING BEFORE MEALS. DO NOT BREAK, CRUSH, DISSOLVE OR CHEW. 180 capsule 0 oxybutynin XL (Ditropan XL) 5 MG 24 hr tablet Take 1 tablet (5 mg) by mouth Once per day. Do not crush, chew, or split. 30 tablet 11 pravastatin (Pravachol) 40 MG tablet Take 1 tablet (40 mg) by mouth Once per day. 90 tablet 1 [DISCONTINUED] acetaminophen (Tylenol) 500 MG tablet Take 2 tablets (1,000 mg) by mouth every 6 (six) hours if needed for moderate pain or fever for up to 25 doses. 40 tablet 0 No facility-administered encounter medications on file as of 07/10/2025. documented in this encounter Plan of Treatment Upcoming Encounters Date Type Department Care Team (Late st Contact Info) Description 09/25/2025 2:30 PM EST Office Visit [facility] [address] [place] [address] Corine Tobin MD [address] [place], [place] [phone] documented as of this encounter Procedures Procedure Name Priority Date/Time Associated Diagnosis Comments PALLIATIVE (EMERGENCY) TREATMENT OF DENTAL PAIN - MINOR PROCEDURE Routine 07/10/2025 1:00 PM EDT Dental caries Periodontal disease INTRAORAL - PERIAPICAL FIRST RADIOGRAPHIC IMAGE Routine 07/10/2025 1:00 PM EDT Dental caries Periodontal disease CASE PRESENTATION, DETAILED AND EXTENSIVE TREATMENT PLANNING Routine 07/10/2025 1:00 PM EDT Dental caries Periodontal disease documented in this encounter Visit Diagnoses Diagnosis Dental caries- Primary Unspecified dental caries Periodontal disease Unspecified gingival and periodontal disease documented in this encounter Additional Health Concerns Assessment Noted Time PHQ-9 Depression Total Score: 0 06/19/20 25 10:05 AM EDT documented as of this encounter Care Teams Renal Medicine Specialist Relationship Specialty Start Date End Date Corine Tobin MD [address] [place] [phone] PCP - General Internal Medicine 08/03/24 documented as of this encounter
--- OUTSIDE RECORDS SUMMARY | 2025-07-10 13:30 | XMS_ITS | Encounter Summary ---
Author Organization [employer] Address [address] [facility] 7t [place] [address] Care Team Providers Care Heel Pricker Name Role Phone Corine Tobin MD Primary Care Provide r Reason for Visit * Reason Comments Extraction On tooth#31 Encounter Details Date Type Department Care Team (Late st Contact Info) Description 07/10/2025 1:30 PM EDT Office Visit [facility] [address] [place] [address] Geovani Villareal DDS [address] [place] [address] Excessive attrition of teeth (Primary Dx); Periodontal disease Social History Tobacco [...] as of this encounter Progress Notes * Geovani Villareal, DOMINIQUE - 07/10/2025 1:30 PM EDT Patient ID: Hafsa Bourgeois is a 79 y.o. female. Time Out: Timeout Date: 07/10/25, Timeout Time: 1351 (ext on tooth#31) Location: [facility] Tooth: Mandible and #31 Procedure: Extraction Verified the above with patient, assistant purchasing manager, and provider. Confirmed via patient's chart, intraorally and by radiographs. Plasma Processor: not applicable Chief Complaint Patient presents with Extraction On tooth#31 Medical Hx: Vitals: There were no vitals taken for this visit. Medical History[1] Medications: Encounter Medications[2] Consent Obtained: The risks, benefits, indications, potential complications, and alternatives were explained to the patient and informed consent was obtained with good understanding. Treatment Provided: Dental procedures in this visit D7210 - EXTRACTION, ERUPTED TOOTH REQ REMOVAL OF BONE AND/OR SECTIONING OF TOOTH 31 D9450 - CASE PRESENTATION, DETAILED AND EXTENSIVE TREATMENT PLANNING Diagnosis: Periodontal disease, excessive attrition Topical: 20% Benzocaine Anesthesia: 2% Lidocaine (Xylocaine) w/ 1:100,000 epinephrine Number of Cartridges: 1 Injection Type: Inferior alveolar nerve block, Long buccal nerve block, and Intrapapillary injection Confirmed profound anesthesia. Pharyngeal curtain and bite block placed. Removed tooth with elevators and forceps. Apices intact. Surgical Extraction: Routine # 31 today only, others in another appointment, per pt and daughter request Socket curetted & irrigated with sterile water. Compressed alveolar bone. Sutures: None Needed All adjacent teeth intact. Hemostasis achieved. Complications: None. Pt tolerated procedure well. Hafsa went with Dr. Allen prior to this extraction appointment and according to her daughter, arrangements of analgesics and ABX are already resolved . Written and verbal post-op instructions given. Patient discharged in stable condition; ambulatory, alert, and oriented. NV: F/U as needed / Cont. [employer] Specialist: Marimar Cole Dentist: Geovani Villareal DDS [1] Past Medical History: Diagnosis Date [...] Description 09/25/2025 2:30 PM EST Office Visit [facility] [address] [place] [phone] Corine Tobin MD [address] [place] [phone] documented as of this encounter Procedures Procedure Name Priority Date/Time Associated Diagnosis Comments 31 EXTRACTION, ERUPTED TOOTH REQ REMOVAL OF BONE AND/OR SECTIONING OF TOOTH Routine 07/10/2025 1:30 PM EDT CASE PRESENTATION, DETAILED AND EXTENSIVE TREATMENT PLANNING Routine 07/10/2025 1:30 PM EDT documented in this encounter Visit Diagnoses Diagnosis Excessive attrition of teeth- Primary Excessive attrition of teeth, unspecified Periodontal disease Unspecified gingival and periodontal disease documented in this encounter Additional Health Concerns Assessment Noted Time PHQ-9 Depression Total Score: 0 06/19/20 25 10:05 AM EDT documented as of this encounter Care Teams Heel Pricker Relationship Specialty Start Date End Date Corine Tobin MD [address] [place] [phone] PCP - General Internal Medicine 08/03/24 documented as of this encounter
--- OUTSIDE RECORDS SUMMARY | 2025-07-14 09:09 | XMS_ITS | Encounter Summary ---
Author Organization [employer] Address [address] [facility] 7[address] [place] [address] Care Team Providers Care Ice Cream Dispenser Name Role Phone Corine Tobin MD Primary Care Provide r Encounter Details Date Type Department Care Team (Late st Contact Info) Description 07/10/2025 Orders Only [facility] [address] [place], [place] [phone] Marin Burgess MD [address] [place] [address] Social History Tobacco Use Types Packs/Day Years [...] Description 09/25/2025 2:30 PM EST Office Visit [facility] [address] [place] [address] Corine Tobin MD [address] [place] [address] documented as of this encounter Visit Diagnoses Not on filedocumented in this encounter Additional Health Concerns Assessment Noted Time PHQ-9 Depression Total Score: 0 06/19/20 25 10:05 AM EDT documented as of this encounter Care Teams Ice Cream Dispenser Relationship Specialty Start Date End Date Corine Tobin MD [address] [place] [address] PCP - General Internal Medicine 08/03/24 documented as of this encounter
--- OUTSIDE RECORDS SUMMARY | 2025-07-14 09:09 | XMS_ITS | Encounter Summary ---
Author Organization [employer] Address [address] [facility] 7t [place] [address] Care Team Providers Care Catalyst Operator Gasoline Name Role Phone Corine Tobin MD Primary Care Provide r Encounter Details Date Type Department Care Team (Late st Contact Info) Description 01/18/2024 Telephone [facility] [address] [place] [phone] Rogelio Dobbs MD [address] [place] [address] [phone] Social History Tobacco Use Types Packs/Day Years [...] Description 09/25/2025 2:30 PM EST Office Visit [facility] [address] [place] [phone] Corine Tobin MD [address] [place] [phone] documented as of this encounter Visit Diagnoses Not on filedocumented in this encounter Care Teams Catalyst Operator Gasoline Relationship Specialty Start Date End Date Corine Tobin MD [address] [place] [address] PCP - General Internal Medicine 08/03/24 documented as of this encounter
--- OUTSIDE RECORDS SUMMARY | 2025-07-14 09:09 | XMS_ITS | Encounter Summary ---
Author Organization [employer] Address [address] [facility] 7t [place] [address] Care Team Providers Care Direct Mail Manager Name Role Phone Corine Tobin MD Primary Care Provide r Reason for Visit * Reason Onset Date Comments Results 07/10/2025 Encounter Details Date Type Department Care Team ([facility] st Contact Info) Description 07/10/2025 Results Follow-Up [facility] PEDS [address] [place] [address] Marin Burgess MD [address] [place] [address] XR Lumbar Spine 2-3 Views, XR Chest 2 Views Social History Tobacco Use Types Packs/Day Years [...] AM EST documented as of this encounter Miscellaneous Notes * Result Encounter Note - Marin Burgess MD - 07/10/2025 12:52 PM EDT Thanks Radha. Sent * Telephone Encounter - Radha Canseco RN - 07/10/2025 8:35 AM EDT Tcplaced to pt spoke to son in law with pt permission for and reviewed the message below. Pt is scheduled for knee surgery on the of this month so she would like to get through her knee procedure first before any referrals for her back . Requesting refill for diclofenac gel for back pain and will que to provider. ----- Message from Marin Burgess MD sent at 07/10/2025 8:23 AM EDT ----- Please notify Hafsa's daughter that Hafsa's lumbar spine x-ray was read as multiple arthritic changes. Her chest x-ray was read as normal except for hiatal hernia that had been seen on CT scan 04/25/2025. If she is still having back pain, I could refer her to pain management if she agrees. Thanks Damaso ----- Message ----- From: Interface, Ris Results In Sent: 07/07/2025 1:16 PM EDT To: Marin Burgess MD documented in this encounter Plan of Treatment Upcoming Encounters Date Type Department Care Team (Late st Contact Info) Description 09/25/2025 2:30 PM EST Office Visit [facility] [address] [place] [address] Corine Tobin MD [address] [place] [phone] documented as of this encounter Visit Diagnoses Diagnosis Chronic back pain, unspecified back location, unspecified back pain laterality documented in this encounter Additional Health Concerns Assessment Noted Time PHQ-9 Depression Total Score: 0 06/19/20 25 10:05 AM EDT documented as of this encounter Care Teams Direct Mail Manager Relationship Specialty Start Date End Date Corine Tobin MD [address] [place] [phone] PCP - General Internal Medicine 08/03/24 documented as of this encounter
--- OUTSIDE RECORDS SUMMARY | 2025-07-14 09:09 | XMS_ITS | Clinical Summary ---
Author Organization [employer] Address [address] [facility] [address] [place] [address] Care Team Providers Care Hide Spreader Name Role Phone Corine Tobin MD Primary Care Provide r Allergies No known active allergies Medications diclofenac sodium 3 % gel Apply topically [...] per day. 30 tablet 11 06/19/20 25 026 Active pravastatin (Pravachol) 40 MG tabletIndicatio ns:Primary hypertension,Dy slipidemia Take 1 tablet (40 mg) by mouth Once per day. 90 tablet 1 06/19/20 25 026 Active oxybutynin XL (Ditropan XL) 5 MG 24 hr tabletIndicatio ns:Urinary frequency Take 1 tablet (5 mg) by mouth Once per day. Do not crush, chew, or split. 30 tablet 11 06/19/20 25 026 Active acetaminophen (Tylenol) 500 MG tablet Take 2 tablets (1,000 mg) by mouth every 6 (six) hours if needed for moderate pain or fever for up to 25 doses. 40 tablet 07/05/20 Active lidocaine (Lidoderm) 5 % patch Apply 1 patch topically Once per day. Remove & discard patch within 12 hours or as directed by MD. May use 2 patches at once 60 patch 2 07/05/20 25 Active Diclofenac Sodium 1 % gel Apply 4 g topically if needed in the morning, at noon, in the evening, and at bedtime (pain). 100 g 1 07/10/20 Active amoxicillin-cla vulanate (Augmentin) 875-125 MG tablet Take 1 tablet by mouth 2 times daily for 7 days. 14 tablet 07/10/20 25 025 Active acetaminophen (Tylenol 8 Hour) 650 MG ER tablet Take 1 tablet (650 mg) by mouth every 8 (eight) hours if needed for moderate pain for up to 10 days. Do not crush, chew, or split. 15 tablet 07/10/20 25 025 Active acetaminophen (Tylenol) 500 MG tablet Take 2 tablets (1,000 mg) by mouth every 6 (six) hours if needed for moderate pain or fever for up to 25 doses. 40 tablet 10/14/20 23 025 Discontinued(Re order (will not trigger notification to Pharmacy)) pravastatin (Pravachol) 40 MG tabletIndicatio ns:Primary hypertension,Dy slipidemia Take 1 tablet (40 mg) by mouth Once per day. 90 tablet 1 12/02/19 25 025 Discontinued(Re order (will not trigger notification to Pharmacy)) amLODIPine (Norvasc) 5 MG tabletIndicatio ns:Primary hypertension TAKE 1 TABLET BY MOUTH EVERY DAY 90 tablet 2 05/12/20 25 025 Discontinued Active Problems Problem Noted Date Diagnosed Date Excessive attrition of teeth 07/10/2025 Periodontal disease 07/10/2025 Preop examination 06/19/2025 Assessment & Plan (06/19/2025 [...] Encounters Date Type Department Care Team Description 07/10/2025 1:30 PM EDT Office Visit [facility] [address] [place] [phone] Geovani Villareal DDS Excessive attrition of teeth (Primary Dx); Periodontal disease 07/10/2025 1:00 PM EDT Office Visit [facility] [address] [place] [phone] Mary Farrell DDS Dental caries (Primary Dx); Periodontal disease 07/10/2025 Orders Only [facility] [address] [place] [address] Marin Palomares MD 07/10/2025 Results Follow-Up [facility] [address] [place] [address] Marin Palomares MD XR Lumbar Spine 2-3 Views, XR Chest 2 Views 07/06/2025 Telephone [facility] [address] [place] [address] Corine Tobin MD NOV RECALL 07/05/2025 3:00 PM EDT Office Visit [facility] [address] [place] [phone] Marin Palomares MD Acute bilateral low back pain without sciatica (Primary Dx); Acute cough; Palpitations 07/05/2025 Travel 06/19/2025 9:45 AM EDT Office Visit [facility] [address] [place] [phone] Corine Tobin MD Preop examination; Primary hypertension; Prediabetes; Dyslipidemia; Urinary frequency 06/19/[address] [address] Corine Tobin MD Pre-op notes sent 06/19/2025 Travel 06/16/2025 Telephone [facility] [address] [place] [address] Corine Tobin MD Chart Prep 06/01/2025 Telephone [facility] [address] [place] [address] Corine Tobin MD preop 05/31/2025 2:00 PM EDT Office Visit [facility] [address] [place] [address] Tarka, Kary, OD Combined forms of age-related cataract of both eyes (Primary Dx); Presbyopia; Posterior vitreous detachment of left eye 05/31/2025 Travel 05/11/2025 1:00 PM EDT Office Visit [facility] [address] [place] [address] Tosin, Tia Tipped teeth (Primary Dx); Excessive attrition of teeth; Dental caries 05/11/2025 Refill [facility] [address] [place] [address] Corine Tobin MD Chronic idiopathic constipation; Primary hypertension; Gastroesophageal reflux disease, unspecified whether esophagitis present; Chronic gastric ulcer, unspecified whether gastric ulcer hemorrhage or perforation present 05/11/2025 Refill [facility] [address] [place] [address] Cynthia Roque DO Gastroesophageal reflux disease, unspecified whether esophagitis present; Chronic gastric ulcer, unspecified whether gastric ulcer hemorrhage or perforation present 05/11/2025 Refill [facility] [address] [place] [address] Mikayla Browning FNP 04/27/2025 Results Follow-Up [facility] [address] [place] [address] Abdomen w/ Contrast [...] Pressure 110/68 07/10/2025 1:18 PM EDT Pulse 78 07/05/2025 3:06 PM EDT Temperature 36.1 C (97 F) 07/05/2025 3:06 PM EDT Respiratory Rate 16 07/05/2025 3:06 PM EDT Oxygen Saturation 98% 07/05/2025 3:06 PM EDT Inhaled Oxygen Concentration - - Weight 77.8 kg (171 lb 9.6 oz) 07/05/2025 3:06 P M EDT Height 152.4 cm (5') 07/05/2025 3:06 PM EDT Body Mass Index 33.51 07/05/2025 3:06 PM EDT Plan of Treatment Upcoming Encounters Date Type Department Care Team (Late st Contact Info) Description 09/25/2025 2:30 PM EST Office Visit [facility] [address] [place] [address] Corine Tobin MD [address] [place] [address] Health Maintenance Due Date Last Done Comments [...] Depression Screening 06/19/2026 06/19/2025, 06/19/2025 Tobacco Screening 07/10/2026 07/10/2025 Dental X-Ray: Full Mouth 05/12/2028 05/11/2025 Lipid [...] Procedure Name Priority Date/Time Associated Diagnosis Comments CASE PRESENTATION, DETAILED AND EXTENSIVE TREATMENT PLANNING Routine 07/10/2025 1:30 PM EDT 31 EXTRACTION, ERUPTED TOOTH REQ REMOVAL OF BONE AND/OR SECTIONING OF TOOTH Routine 07/10/2025 1:30 PM EDT CASE PRESENTATION, DETAILED AND EXTENSIVE TREATMENT PLANNING Routine 07/10/2025 1:00 PM EDT Dental caries Periodontal disease INTRAORAL - PERIAPICAL FIRST RADIOGRAPHIC IMAGE Routine 07/10/2025 1:00 PM EDT Dental caries Periodontal disease PALLIATIVE (EMERGENCY) TREATMENT OF DENTAL PAIN - MINOR PROCEDURE Routine 07/10/2025 1:00 PM EDT Dental caries Periodontal disease XR LUMBAR SPINE 2-3 VIEWS Routine 07/07/2025 1:05 PM EDT Acute bilateral low back pain without sciatica XR CHEST 2 VIEWS Routine 07/07/2025 12:3 7 PM EDT Acute cough CULTURE, URINE, ROUTINE Routine 07/07/2025 11:21 AM EDT Acute bilateral low back pain without sciatica POCT INFLUENZA B (ID NOW RAPID MOLECULAR) Routine 07/05/2025 3:56 PM EDT Acute cough POCT INFLUENZA A (ID NOW RAPID MOLECULAR) Routine 07/05/2025 3:56 PM EDT Acute cough POCT RAPID COVID ANTIGEN Routine 07/05/2025 3:56 PM EDT Acute cough BASIC METABOLIC PANEL Routine 06/28/2025 12:16 PM [...] Recently Relevant to Health Maintenance Results * XR Lumbar Spine 2-3 Views (07/07/2025 1:05 PM EDT) Anatomical Region Laterality Modality Spine, L-spine Radiographic Shireen ging 07/07/2025 1:05 PM EDT Narrative 07/07/2025 1:15 PM EDT [place] [address] XRay Report Signed Patient: Hafsa Bourgeois MR#: [id number] : 1945 Acct:[id number] Age/Sex: 79 / F ADM Date: 07/07/25 Loc: [facility] Attending Dr: Marin Palomares MD Ordering Physician: MARIN PALOMARES MD Date of Service: 07/07/25 Procedure(s): XR lumbar spine 2-3V Accession Number(s): [id number] cc: MARIN PALOMARES MD; Corine Tobin MD Reason for Exam: cough EXAMINATION: XR LUMBOSACRAL SPINE CLINICAL INFORMATION: cough COMPARISON: CT from April 25, 2025 TECHNIQUE: Three views of the lumbosacral spine. FINDINGS: There are 5 nonrib-bearing segments in the lumbar spine. There is mild levoscoliosis. Multilevel degenerative changes are noted. Vertebral body height is maintained. XR/XR lumbar spine 2-3V IMPRESSION: Multilevel degenerative changes and mild levoscoliosis without acute abnormality. Electronically signed by: Humphrey Roberson MD 07/07/2025 01:12 PM EDT Dictated By: Humphrey Roberson MD Signed By: <Electronically signed by Humphrey Roberson MD in OV> 07/07/25 1312 DD/ 1305 TD/TT: 07/07/25 1307 Rate Supervisor: Procedure Note Donotuseinterpreter, Image - 07/07/[address] [address] XRay Report Signed Patient: Hafsa Bourgeois AMR#: [id number] : 8Acct:[id number] Age/Sex: 79 / FADM Date: 07/07/25 Loc: [facility] Attending Dr: Marin Palomares MD Ordering Physician: MARIN PALOMARES MD Date of Service: 07/07/25 Procedure(s): XR lumbar spine 2-3V Accession Number(s): [id number] cc: MARIN PALOMARES MD; Corine Tobin MD Reason for Exam: cough EXAMINATION: XR LUMBOSACRAL SPINE CLINICAL INFORMATION: cough COMPARISON: CT from April 25, 2025 TECHNIQUE: Three views of the lumbosacral spine. FINDINGS: There are 5 nonrib-bearing segments in the lumbar spine. There is mild levoscoliosis. Multilevel degenerative changes are noted. Vertebral body height is maintained. XR/XR lumbar spine 2-3V IMPRESSION: Multilevel degenerative changes and mild levoscoliosis without acute abnormality. Electronically signed by: Humphrey Roberson MD 07/07/2025 01:12 PM EDT Dictated By: Humphrey Roberson MD Signed By: <Electronically signed by Humphrey Roberson MD in OV> 07/07/25 1312 DD/ 1305 TD/TT: 07/07/25 1307 Rate Supervisor: us Marin Palomares MD IMG XR PROCEDURES Final Result * XR Chest 2 Views (07/07/2025 12:37 PM EDT) Anatomical Region Laterality Modality Chest Radiographic Shireen ging 07/07/2025 12:3 7 PM EDT Narrative 07/07/2025 1:17 PM EDT [address] [address] XRay Report Signed Patient: Hafsa Bourgeois MR#: [id number] : 1945 Acct:[id number] Age/Sex: 79 / F ADM Date: 07/07/25 Loc: [facility] Attending Dr: Marin Palomares MD Ordering Physician: MARIN PALOMARES MD Date of Service: 07/07/25 Procedure(s): XR chest 2V Accession Number(s): [id number] cc: MARIN PALOMARES MD; Corine Tobin MD Reason for Exam: 5 day h/o cough EXAMINATION: XR CHEST CLINICAL INFORMATION: 5 day h/o cough COMPARISON: CT abdomen and pelvis April 25, 2025 TECHNIQUE: 2 views of the chest were obtained. FINDINGS: There is masslike density with central lucency present in the posterior lower chest consistent with a hiatal involving gastric fundus. Lungs are clear and well aerated. Heart size is enlarged. XR/XR chest 2V IMPRESSION: Cardiomegaly. Hiatal hernia involving gastric fundus. Electronically signed by: Humphrey Roberson MD 07/07/2025 01:14 PM EDT Dictated By: Humphrey Roberson MD Signed By: <Electronically signed by Humphrey Roberson MD in OV> 07/07/25 1314 DD/ 1237 TD/TT: 07/07/25 1307 Rate Supervisor: Procedure Note Donotuseinterpreter, Image - 07/07/2025 [place] [address] XRay Report Signed Patient: Hafsa Bourgeois [facility]#: [id number] : 8Acct:[id number] Age/Sex: 79 / FADM Date: 07/07/25 Loc: [facility] Attending Dr: Marin Palomares MD Ordering Physician: MARIN PALOMARES MD Date of Service: 07/07/25 Procedure(s): XR chest 2V Accession Number(s): [id number] cc: MARIN PALOMARES MD; Corine Tobin MD Reason for Exam: 5 day h/o cough EXAMINATION: XR CHEST CLINICAL INFORMATION: 5 day h/o cough COMPARISON: CT abdomen and pelvis April 25, 2025 TECHNIQUE: 2 views of the chest were obtained. FINDINGS: There is masslike density with central lucency present in the posterior lower chest consistent with a hiatal involving gastric fundus. Lungs are clear and well aerated. Heart size is enlarged. XR/XR chest 2V IMPRESSION: Cardiomegaly. Hiatal hernia involving gastric fundus. Electronically signed by: Humphrey Roberson MD 07/07/2025 01:14 PM EDT RP Dictated By: Humphrey Roberson MD Signed By: <Electronically signed by Humphrey Roberson MD in OV> 07/07/25 1314 DD/ 1237 TD/TT: 07/07/25 1307 Rate Supervisor: us Marin Palomares MD IMG XR PROCEDURES Final Result * Culture, Urine, Routine (07/07/2025 11:21 AM EDT) Urine Urine specimen obtained by clean catch procedure / Unknown 07/07/2025 11:21 AM EDT 07/07/2025 1:08 PM EDT Comment:UACC Narrative [facility] - 07/08/2025 12:26 PM EDT Urine Culture Report Result Urine Culture < 10,000 cfu/ml Specimen Source: Urine clean catch Marin Palomares MD LAB MICROBIOLOGY - GENERAL ORDER SUHA Final Result Performing Organization Address City/[facility]/ZIP Co de Phone Number [facility] [address] [place] [phone] * Influenza B (ID NOW Rapid Molecular) (07/05/2025 3:56 PM EDT) Influenza B Negative Negative, Indeterminate [facility] Swab 07/05/2025 3:56 PM EDT us Marin Palomares MD POINT OF CARE TEST ENTER/EDIT OR DERABLES Final Result Performing Organization Address City/[facility]/ZIP Co de Phone Number [facility] [address] [place] [address] [phone] * Influenza A (ID NOW Rapid Molecular) (07/05/2025 3:56 PM EDT) [facility] Influenza A Negative Negative, Indeterminate [facility] Swab 07/05/2025 3:56 PM EDT us Marin Palomares MD POINT OF CARE TEST ENTER/EDIT OR DERABLES Final Result Performing Organization Address City/[facility]/ZIP Co de Phone Number [facility] [address] [place] [phone] * POCT Rapid COVID Ag (07/05/2025 3:56 PM EDT) [facility] Rapid COVID Ag Negative [facility] Swab 07/05/2025 3:56 PM EDT us Marin Palomares MD POINT OF CARE TEST ENTER/EDIT OR DERABLES Final Result Performing Organization Address [facility] Co de Phone Number [facility] [address] [place] [phone] * (ABNORMAL) CBC (06/28/2025 12:16 PM EDT) [facility] White Blood Count 6.1 4.8 - 10.8 X10*3/uL [facility] Red Blood Count 5.23 4.20 - 5.50 X10*6/uL [facility] Hemoglobin 12.2 12.0 - 16.0 g/dl [facility] Hematocrit 37.7 37.0 - 47.0 % [facility] Mean Corpuscular Volume 72.1(L) 80.0 - 98.0 fL [facility] Mean Corpuscular Hemoglobin 23.3(L) 27.0 - 33.0 pg [facility] Mean Corpuscular HGB Conc 32.4 31.0 - 35.0 g/dl [facility] Red Cell Distribution Width 17.1(H) 11.0 - 16.0 % [facility] Platelet Count 368 160 - 400 X10*3/uL [facility] Mean Platelet Volume 10.5 9.4 - 12.3 fL [facility] NRBC Pct Auto 0.0 0.0 - 0.2 /100WBC [facility] NRBC Abs Auto 0.000 0.0 - 0.012 X10*3/uL [facility] 06/28/2025 12:1 6 PM EDT 06/28/2025 1:16 PM EDT us Generic External Data Provider LAB BLOOD ORDERAB LES Final Result Performing Organization Address [facility] Co de Phone Number [facility] [address] [place] [phone] * (ABNORMAL) Basic Metabolic Panel (06/28/2025 12:16 PM EDT) Sodium 142 135 - 145 mmol/L [facility] Potassium 4.2 3.3 - 5.1 mmol/L [facility] Chloride 108 96 - 108 mmol/L [facility] Carbon Dioxide 25 22 - 29 mmol/L [facility] Anion Gap 13 12 - 20 [facility] Urea Nitrogen (BUN) 17(H) 9 - 16 mg/dL [facility] Creatinine, Serum 0.68 0.5 - 1.4 mg/dL [facility] Estimated Glomerular Filt Rate >60 [facility] Comment:Chronic Kidney Disea se: Estimated GFR < 60 mL/min/1.54b8Vmpwnk Kidney Disease: Estimated GFR < 15 mL/min/1.73m2 Glucose 88 60 - 115 mg/dL [facility] Calcium 9.1 8.4 - 10.2 mg/dL [facility] 06/28/2025 12:1 6 PM EDT 06/28/2025 1:21 PM EDT us Generic External Data Provider LAB BLOOD ORDERAB LES Final Result Performing Organization Address City/[facility]/ZIP Co de Phone Number [facility] [address] [place] [phone] [phone] * MRSA Nasal Screen (06/28/2025 11:00 AM EDT) MRSA Nasal PCR NEGATIVE Negative [facility] SA Nasal PCR NEGATIVE Negative [facility] MRSA Interpretation SEE NOTE [facility] Comment:MRSA target DNA not detected; SA target DNA not detected.A MRSA NEGATIVE, SA NEGATIVE test result does not precludeMRSA or SA nasal colonization. 06/28/2025 11:0 0 AM EDT 06/28/2025 11:34 AM EDT us Generic External Data Provider LAB MICROBIOLOGY - GENERAL ORDERABLES Final Result Performing Organization Address [facility] Co de Phone Number [facility] [address] [place] [phone] * ECG 12 lead (06/19/2025 12:15 [...] AM EDT Narrative 04/27/2025 10:11 AM EDT [address] [address] [address] Scan Report Signed Patient: Hafsa Bourgeois MR#: [id number] : 1945 Acct:[id number] Age/Sex: 79 / F ADM Date: 04/25/25 Loc: [facility].CT Attending Dr: Corine Jin MD Ordering Physician: Corine Tobin MD Date of Service: 04/25/25 Procedure(s): CT abdomen w IV con Accession Number(s): [id number] cc: Corine Tobin MD Report Number: [id number]: Total DLP = 355.00 mGy-cm CLINICAL HISTORY: [...] 04/27/25 1011 DD/ 1009 TD/TT: 04/27/25 1009 Rate Supervisor: Procedure Note Donotuseinterpreter, Image - 04/27/[address] [address] [address] Scan Report Signed Patient: Hafsa Bourgeois AMR#: [id number] : 1945cct:[id number] Age/Sex: 79 / FADM Date: 04/25/25 Loc: HO.CT Attending Dr: Corine Jin MD Ordering Physician: Corine Tobin MD Date of Service: 04/25/25 Procedure(s): CT abdomen w IV con Accession Number(s): [id number] cc: Corine Tobin MD Report Number: [id number]: Total DLP = 355.00 mGy-cm CLINICAL HISTORY: [...] 04/27/25 1011 DD/ 1009 TD/TT: 04/27/25 1009 Rate Supervisor: us Corine Jin MD IMG CT PROCEDURES Dinh mahogany Result - Final * POCT Creatinine GFR (04/25/2025 11:59 AM EDT) POCT Creatinine 0.7 0.5 - 1.4 mg/dL [facility] GFR POC >60 [facility] Comment:Chronic Kidney Disea se: Estimated GFR < 60 mL/min/1.46e3Qmxaaz Kidney Disease: Estimated GFR < 15 mL/min/1.73m2 04/25/2025 11:5 9 AM EDT 04/25/2025 4:03 PM EDT Narrative [facility] - 04/25/2025 4:05 PM EDT [id number] us Corine Jin MD LAB POINT OF CARE TEST DOCKED DEVICE ORDERABLES Final Result [facility] [address] [place] [phone] * Hepatitis C Antibody with Reflex to HCV, RNA, Quantitative, Real-Time PCR (08/03/2024 3:45 PM EDT) Hepatitis C Antibody Nonreactive Nonreactive [facility] Comment:Antibodies to HCV no t detected; does not exclude early acuteHCV infection. Blood Venous blood specimen / Unknown 08/03/2024 3:45 PM EDT 08/03/2024 6:03 PM EDT us Corine Jin MD LAB BLOOD ORDERABLES Final Result Performing Organization Address [facility]/ZIP Co de Phone Number [facility] [address] [place] [phone] * (ABNORMAL) Hemoglobin A1c (08/03/2024 3:45 PM EDT) Hemoglobin A1c 6.1(H) <6.0 % [facility] Comment:Hemoglobin A1C Refer ence Range Adults: 4.8 - 6.0 % Non diabetic: < 6.0 % Goal: < 7.0 %Additional Action Suggested: > 8.0 %Note: Hemoglobin A1c results are invalid for patients with abnormal amounts of HbF. Blood transfusions may impact the HbA1c concentration in the patient sample. Estimated Average Glucose 128 mg/dL [facility] Comment:eAG = Estimated ave rage glucose which is %A1C expressed asaverage glucose, using the formula of the [id number] Glucose study (ADAG), Diabetes Care, Vol.31,#8,May. 2007 Blood Venous blood specimen / Unknown 08/03/2024 3:45 PM EDT 08/03/2024 6:03 PM EDT Corine Jin MD LAB BLOOD ORDERABLES Final Result Performing Organization Address [facility]/ZIP Co de Phone Number [facility] [address] [place] [phone] * (ABNORMAL) Lipid Panel, Standard (08/03/2024 3:45 PM EDT) Triglycerides 276(H) <150 mg/dL [facility] Comment:Desirable Triglyceri de: less than 150 mg/dLBorderline High Triglyceride 150-199 mg/dLHigh Triglyceride: 200-499 mg/dLVery High Triglyceride: greater than or equal to 5OO mg/dL Cholesterol 250(H) <200 mg/dL [facility] Comment:Desirable Cholestero l: less than 200 mg/dLBorderline High Cholesterol: 200-239 mg/dLHigh Cholesterol: greater than 239 mg/dL LDL Cholesterol Calculated 110(H) <100 mg/dL [facility] Comment:Desirable LDL: less than 100 mg/dLNear Optimal/Above Optimal LDL: 110- 129 mg/dLBorderline High LDL: 130-159 mg/dLHigh LDL: 160-189 mg/dLVery High LDL: greater than or equal to 190 mg/dL HDL Cholesterol 85 >40 mg/dL [facility] Comment:Desirable HDL: great er than 40 mg/dL Note: This HDL assay may give artificially low results in patients with liver disease. Blood Venous blood specimen / Unknown 08/03/2024 3:45 PM EDT 08/03/2024 6:03 PM EDT us Corine Jin MD LAB BLOOD ORDERABLES Final Result [facility] [address] [place], [place] [phone] from Last 3 Months or Most Recently Relevant to Health Maintenance Insurance [facility] [facility] MEDICAID STAND ADULT Care Teams Hide Spreader Relationship Specialty Start Date End Date Corine Tobin MD [address] [place] [phone] PCP - General Internal Medicine 08/03/24
== END 2025-07-13 08:35 | disposition home or self-care (01) ==
LOC: HO.HOSX 08:34
PROVIDERS: Visit Provider Orthopaedic Surgery
DX: Z13.89 Encounter for screening for other disorder (principal)

== ENCOUNTER 2025-10-02 14:27 | Outpatient (AMB) | payer MEDICAID, SELFPAY ==
--- NOTE | 2025-10-02 14:40 | A.OFFVIS_ITS ---
Vital Signs 10/02/25 14:41 Height 5 ft Weight 175 lb 7.807 oz BMI 34.3 BP 118/70 Blood Pressure Location Lt brachial Position Sitting Pulse 100 Pulse Source Monitor Intake Visit Reasons: MASTER LAY OUT SPECIALIST/Dr. Burgess/Palpitations r/s 09-15-25 Food Sales Clerk Required: Yes Food Sales Clerk Services: Food Sales Clerk Offered & Declined Accompanied by: Daughter Allergies No Known Allergies Allergy (Verified 10/02/25 14:46) Medication List - Last Reconciled 10/02/25 by Conner Sawant NP acetaminophen 1,000 mg PO Q6H PRN amlodipine 5 mg PO QAM omeprazole 20 mg PO BID pravastatin 40 mg PO QAM walker Folding front wheeled walker HPI Comments Details: This is a 79-year-old female patient new to our office referred from primary care office for further evaluation of palpitations and chest discomfort. Moving forward, patient will be under Dr. Jackson's care as he is rounding heavy duty press operator this week. Patient today is accompanied by her daughter who helped with swallow ing interpretation throughout the visit. Patient with a history of hypertension and hyperlipidemia who has been reporting mostly palpitations that is random in nature. Patient also notes that at times she gets some chest discomfort with this. Mostly she notices all her symptoms with eating however sometimes these could be at rest. Patient has severe arthritis and therefore does not do any strenuous activity other than walking around the house with a cane. Patient does note that [place] patient was told she had GI ulcers for which she is taking omeprazole, and is no longer following with GI. Patient is otherwise denying any exertional shortness of breath, dizziness, orthopnea, PND, leg edema, presyncope, or syncope. Patient states that she has not been compliant with her pravastatin and was recently restarted on it and has been only a month on it. [facility] Medical History Chronic idiopathic constipation Elevated cholesterol HTN (hypertension) GERD (gastroesophageal reflux disease) Arthritis Surgical History Hx of hysterectomy Social History Are you a primary behavioral health care manager to a significant other at home: No Do you presently have visiting nurse or other home services: No Patient Tobacco Use Status: Never used Tobacco Current occupational status: retired Current occupation: Right hand dominant Review of Systems Const Denies daytime sleepiness, Denies difficulty sleeping, Denies snoring, Denies stops breathing during sleep and Denies weakness Card Reports chest pain, Denies rapid heart rate, Denies irregular heart rhythm, Denies claudication, Denies leg edema, Denies lightheadedness, Reports palpitations, Reports dyspnea, Denies dyspnea on exertion, Denies orthopnea, Denies paroxysmal nocturnal dyspnea and Denies slow heart rate Resp Denies cough, Reports dyspnea, Denies dyspnea on exertion and Denies snoring GI Reports no additional complaints, Denies hematochezia, Denies change in stool character and Denies dyspepsia Musc Denies abnormal gait, Denies muscle weakness and Denies numbness Neuro Denies abnormal gait, Denies numbness and Denies weakness Endo Reports palpitations Physical Exam Vital Signs: Last Vital Signs Pulse 100 10/02/25 14:41 BP 118/70 10/02/25 14:41 BMI result Body Mass Index 34.3 Const General: cooperative, healthy appearing, comfortable and no acute distress Orientation/consciousness: patient oriented x3 HEENT Head: Yes normal to inspection Neck Neck: Yes normal visual inspection, Yes trachea midline and Yes supple Chest Chest palpation & inspection: normal inspection of the chest Resp Effort & Inspection: normal respiratory effort Auscultation: clear to auscultation bilaterally, no crackles, no rales, no rhonchi and no wheezes Cardio Jugular venous distension: no JVD Palpation: normal PMI Rate: regular rate Rhythm: regular rhythm Heart sounds: S1 normal heart sound present, S2 normal heart sound present, no click, no gallops, no murmurs and no rubs Peripheral pulses: Peripheral pulses 2+ throughout GI Inspection: Yes normal to inspection Palpation (GI): Soft to palpation Auscultation: normal bowel sounds Skin General skin exam: no rashes or lesions noted Neuro General: patient oriented x3 Extrem General: Yes normal to inspection, No no pedal edema and No calf tenderness Psych Appearance: grossly normal Mental Status: mental status grossly normal Speech and movement: Normal speech and movement present Office Procedures EKG Details: EKG today showed normal sinus rhythm, rate 100 beats per minute, peaked P-waves suggestive of right atrial enlargement, nonspecific STT wave, [place] MT, [place]. [id number], Complete Assessment & Plan Assessment & Plan (1) Chest pain: Code(s): R07.9 - Chest pain, unspecified Category: Medical Plan: EKG today is normal sinus rhythm with nonspecific STT wave. Patient's report of chest discomfort is atypical in nature and could be related to her GI issues however given her risk factors of hypertension, hyperlipidemia, obesity we will proceed with a myocardial perfusion study with a pharmacologic agent to assess for ischemic changes. Given her severe arthritis, patient will not be able to walk on the treadmill. We will also get an echocardiogram to look for LV systolic and diastolic dysfunction. (2) Palpitations: Code(s): R00.2 - Palpitations Category: Medical Plan: Given her reports of palpitations, we will get a Holter study to assess for potential arrhythmias. Advised to avoid foods that trigger this. (3) HTN (hypertension): Code(s): I10 - Essential (primary) hypertension Category: Medical Plan: Blood pressure today is well-controlled. Continue amlodipine therapy with a blo od pressure goal less than 130/80. Advised monitor this at home. Advised on low-salt diet. (4) Elevated cholesterol: Code(s): E78.00 - Pure hypercholesterolemia, unspecified Category: Medical Plan: Most recent lipid profile is very elevated. Continue pravastatin, with an ideal LDL goal close to 70. Advised on heart healthy diet, med compliance, avoiding spicy and caffeinated beverages, and management of vascular risk factors. Follow up after testings. If her cardiac workup is negative, patient may benefit from GI evaluation. In the interim, patient will call the office with any concerns or change in symptoms. Advised to seek ER care in case of exertional chest pain not resolved with rest. This note was generated using voice recognition software. While every effort has been made to ensure accuracy and proper manager internet, there may be occasional errors that could affect the content or meaning of the described symptoms. Orders: Orders ECG 3 day holter monitor Today R00.2 - Palpitations AMB EKG-In Office Today R00.2 - Palpitations, R07.9 - Chest pain, unspecified CA lexiscan stress w irene Today R07.9 - Chest pain, unspecified CA echo transthoracic complete Today R00.2 - Palpitations, R07.9 - Chest pain, unspecified Coding Level of Care Code New Pt Level 4 (21148) Complex visit Add On G2211 Diagnoses Chest pain R07.9 Palpitations R00.2 HTN (hypertension) I10 Elevated cholesterol E78.00 CPT Codes EKG - CPT: 90452-[id number], Complete ([id number]) Time Spent (min) 33 Comment Time spent in reviewing the chart, test results, assessment, counseling and documentation.
[2025-10-02 14:41] VITALS: BP 118/70; PULSE 100; BMI 34.3
== END 2025-10-02 15:17 | disposition home or self-care (01) ==
LOC: HO.HCS 14:27
PROVIDERS: PCP Internal Medicine
DX: R07.9 Chest pain, unspecified (principal); R00.2 Palpitations; I10 Essential (primary) hypertension; E78.00 Pure hypercholesterolemia, unspecified
CPT/HCPCS: 93010; 99204

== ENCOUNTER → 2025-10-02 14:27 | Outpatient (BNVA) | payer MEDICAID, SELFPAY | PROVIDERS: PCP Internal Medicine | DX: R07.9 Chest pain, unspecified (principal); R00.2 Palpitations; I10 Essential (primary) hypertension; E78.00 Pure hypercholesterolemia, unspecified | CPT/HCPCS: 93005; 99212 ==